=== PATIENT | female | born 1935 | race Caucasian/White ===

== ENCOUNTER 2019-03-01 13:28 | Inpatient (IN) | payer OTHER ==
[~2019-03-01] VITALS: Ht 162.6 cm; Wt 70.8 kg
[2019-03-01 04:11] VITALS: BP 140/55
[~2019-03-01 13:28] MED LIST: ASPIR 8181 MG PO; IBUPROFEN 800800 M1 PO; LIPITOR; LOTENSIN; MEDROL DOSPAK21 TAB PO; UNICOMPLEX M TA1 TA1 PO
[2019-03-01 13:30] VITALS: BP 146/77
[2019-03-01 13:59] LABS: URINE BILIRUBIN NEGATIVE (Negative); URINE BLOOD NEGATIVE (Negative); URINE CLARITY CLEAR; URINE COLOR YELLOW; URINE GLUCOSE-RANDOM* NEGATIVE (Negative); URINE KETONES NEGATIVE (Negative); URINE LEUKOCYTES-REFLEX TRACE (Negative); URINE NITRITE-REFLEX NEGATIVE (Negative); URINE PROTEIN (DIPSTICK) NEGATIVE (Negative); URINE SPECIFIC GRAVITY >= 1.030 (1.005-1.035); URINE UROBILINOGEN 0.2 E.U./dl (0.2-1.0)
[2019-03-01 14:08] LABS: AMP/METHAMP Negative (Negative); BARBITURATES Negative (Negative); BENZODIAZEPINES Negative (Negative); COCAINE Negative (Negative); METHADONE Negative (Negative); OPIATES Negative (Negative); PCP Negative (Negative)
[2019-03-01 15:13] LABS: ABSOLUTE NEUTROPHILS 4.6 thou/uL (1.4-8.2); BASOPHILS 0.8 % (0.0-2.0); EOSINOPHILS 1.2 % (0.0-3.0); HEMATOCRIT 38.6 % (37.0-47.0); HEMOGLOBIN 12.8 gm/dL (12.0-15.0); MCH 30.9 pg (26.0-34.0); MCHC 33.1 g/dL (28.0-37.0); MCV 93.3 fL (80.0-100.0); PLATELET COUNT 265 thou/uL (150-400); RBC 4.14 mil/uL (4.20-5.00); RDW 13.1 % (10.5-14.5); WBC 7.3 thou/uL (4.0-11.0)
[2019-03-01 15:23] LABS: ANION GAP 11 mmol/L (7-16); BUN 22 mg/dL (7-18); CHLORIDE 108 mmol/L (98-107); CO2 25 mmol/L (21-32); CREATININE 0.7 mg/dL (0.6-1.0); GLUCOSE 109 mg/dL (74-106); SODIUM 144 mmol/L (136-145)
[2019-03-01 15:33] LABS: ALBUMIN 4.1 g/dL (3.4-5.0); SALICYLATE 3.6 mg/dL (2.8-20.0); SGOT 19 U/L (15-37); SGPT 23 U/L (30-65); TOTAL BILIRUBIN 0.4 mg/dL (<0.1-1.0); TOTAL PROTEIN 7.1 g/dL (6.4-8.2)
[2019-03-01 16:21] VITALS: BP 132/78
--- NOTE | 2019-03-01 17:30 | NUR ---
Patient arrived from ER as a 96 hour hold. Patient denies any suicidal ideations. Patient states that she does have a short term memory and some dementia. Patient states that she is being held without her permission. Patient is ambulatory, and can take medications whole. Patient is upset because the police came to her home and removed her without her consent. Patient arrived with a purse with a wallet that contained 32 dollars and different types of cards such as a license and bank card. Patient did not bring any other belongings. Patient was transported from the emergency room to [facility] via wheel chair. Patients blood pressure was elevated when her vital signs were taken.
--- NOTE | 2019-03-01 18:46 | NUR ---
Assessment reveals clear breath sounds, active bowel sounds, and s1 s2 audible with auscultation.
[2019-03-01 19:54] VITALS: BP 140/55
[2019-03-01 20:00] VITALS: BP 140/55
--- NOTE | 2019-03-02 05:52 | NUR ---
PATIENT HAS BEEN CALM AND COMPLIANT. SHE HAS BEEN SLEEPING SINCE 1930 AND DID AWAKE AROUND 0400 DRESSED IN HER CLOTHES AND CARRYING HER SHOES. SHE WAS ALERT AND ORIENTED X 3 BUT CONFUSED AND FORGETFUL. SHE SAID SHE WAS NOW GOING TO BE LEAVING AND WANTED TO SAY GOOD BYE. I EXPLAINED THAT NO ONE WAS LEAVING AT THIS HOUR AND SHE NEEDED TO STAY BECAUSE THE DOCTOR WANTED TO SEE HER THIS MORNING. SHE WAS AGREEABLE AND DECIDED TO GO BACK AND LAY DOWN ON HER BED WHICH SHE FINDS VERY COMFORTABLE. PATIENT DENIES PAIN. SHE IS AMBULATING WITHOUT DIFFICULTY. PHYSICAL ASSESSMENT WNL. PATIENT SLEEPING.
[2019-03-02 08:17] VITALS: BP 166/80
[2019-03-02 09:20] LABS: TSH 2.806 uIU/mL (0.358-3.740)
[2019-03-02 11:08] VITALS: BP 166/80
--- NOTE | 2019-03-02 11:28 | NUR ---
ASSUMED CARE AT 0700 THIS MORNING. PT. IN BED, GOT UP FOR BREAKFAST. CONTINUES TO ADMIT SHE DOES HAVE PROBLEMS WITH HER MEMORY BUT DENIES IT IS BAD ENOUGH TO BE HERE. SHE HAS MOSTLY BEEN PACING IN THE SAENZ, OFTEN STANDING BY THE NURSES STATION OR THE 'S OFFICE JUST "WAITING" OR STARING. SHE HAS A TENSE POSTURE. SHE HAS A FLAT AFFECT. SHE HAS BEEN COOPERATIVE WITH TAKING HER MEDICATIONS. IS ISOLATIVE ON THE UNIT, STAYING NEAR HER ROOM, DR'S OFFICE OR NURSES STATION. SHE DOES NOT TALK TO ANYONE UNLESS SHE IS ASKED A QUESTION. SHE WILL ANSWER THE QUESTION AND NOT SAY ANYTHING MORE THAN THAT.
--- NOTE | 2019-03-02 15:23 | NUR ---
ARISTEO contacted pt's brother Tyler to get background information on pt. He says that pt has been diagnosed with dementia, and she possibly sees a doctor with [facility]. He said he gave all of her doctor information to the ED staff. He said that pt has been hoarding a while, but lately she has become even more reclusive. He says pt has a brother (Jett) who also has been diagnosed with dementia who is currently in fpc. He said pt has been 2x's, and 2x's, and has never had a good relationship with her family; she accuses her mother of negative things she allegedly has done to her. Tyler believes her claims are unfounded. 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 To his knowledge, pt does not have any allergies. She also does not have a DPOA; he said he tried many times to encourage pt to take care of this matter but she did not. She only had one son, but he is . ARISTEO talked with Tyler about guardianship, and he said at this time he is unable to handle that task as he is also 80 and that is more responsibility than he can handle. He also does not have the funds to pursue guardianship. Tyler said pt cannot go home because her house has been condemned by the [facility]. ARISTEO scheduled a family meeting with Tyler for 03/06/19 @ 1300. ARISTEO team will continue to follow pt during her stay.
[2019-03-02 20:00] VITALS: BP 146/66
--- NOTE | 2019-03-02 23:53 | NUR ---
Care assumed of patient at 1915: Patient sitting in her room reading the newspaper at start of shift. Patient pleasant and cooperative with nursing assessment. Patient alert and oriented to person and time. Disoriented on current place and situation. When asked if patient knew where she was, she stated that she came here to visit because she wasn't sure if she would like it and wanted to "try it out". Patient re-oriented that she is currently at the hospital. Patient then stated "oh, that is good, in case someone gets sick, there are doctors here". Patient then talked about how her administrative office manager came to visit her today because he saw her name was on the roster and wanted to check in. Unsure if this is accurate. As patient was reading the paper, she noted that she was reading an old paper and would like to get a current paper. Patient came to dining room and interacted well with staff and peers. Patient ate 100% HS snack. Independent with ADLs. Continent of bladder. Patient not fixated on going home this shift. Patient happy and smiling. Patient does not have any scheduled HS medications. Denies pain or discomfort. Remains on involuntary hold at this time. No aggression or agitation observed. Loose associations noted when speaking. Patient was able to retire to bed at a reasonable hour and has been resting quietly since.
--- NOTE | 2019-03-03 07:30 | NUR ---
PT SITTING IN DAY ROOM. PT UPSET ABOUT HOW SHE ENDED UP HERE. PT STATED THAT THE POLICE JUST CAME INTO HOUSE WITHOUT KNOCKING AND GOING THROUGH HER STUFF. PT STATED IF THEY WOULD OF KNOCKED ON DOOR. THIS EYEGLASS FITTER ASKED HER IF SHE HAD A CELL PHONE OR IF SHE WATCHES ANY TV, PT STATED NO SHE DIDN'T HAVE A PHONE. PT STATED SHE WAS GOING THROUGH PAPERS AT HOME. PT STATED SHE WAS NOT HAPPY WITH THIS SITUATION AND JUST WANTS TO GO HOME.
[2019-03-03 08:00] VITALS: BP 138/60
[2019-03-03 08:49] VITALS: BP 138/60
--- NOTE | 2019-03-03 15:06 | NUR ---
ARISTEO and psych doctor met with pt to discuss her discharge plans, and that pt cannot go back to her home because that would be an unsafe discharge due to her living conditions. Also, given pt's issues she is in need of either a DPOA or state guardian. Pt went on a tangent several times about how her brother is attempting to get her home and he is probably the one who called the police; she initially said she believed a neighbor called the police. SW redirected her several times back to who could be her DPOA. Intially she said no one; she does not have a good relationship with either her sister and younger brother, and her older brother is currently a candidate for having a state guardian due to his mental state and dementia. After SW reiterated that the doctor will have no choice but to ask the state to become her guardian, she said that she knows of someone from her hindu named Fransico Peres who she is okay with being her guardian; however, she did not know his contact information. ARISTEO asked pt questions to see if she was oriented including the date and season. Pt got those 2 answers correct, but when she asked pt where they were pt responded "we are going into winter." SW clarified that she was asking what place ther were currently at and pt responded "right it's February, we are going into Winter." SW then asked her who the president was and she responded "the tee getting ready to get kicked out of office." SW responded there have been a few presidents who were threatened to be kicked out so which one is in office now. Pt responded that it's "the tee all over the news." Pt never gave a name. ARISTEO contacted the [facility] in [place], [place], where pt attends hindu and asked for Fransico. She was told by personnel that Fransico no longer workds there., but that she can send him an email. ARISTEO left her contact information. Fransico Peres contacted ARISTEO and ARISTEO provided him an update on pt needing a DPOA. He reponded that while he has known pt many years, he also knowsthat she is unstable and in real need. He said he believes this will be much work, and that he is unsure if he should be involved, but that he is okay with being pt's DPOA. ARISTEO obtained his address and phone number of [address] [place], [facility] . ARISTEO team will continue to follow pt during her stay.
--- NOTE | 2019-03-03 16:09 | NUR ---
ASKED PT ABOUT SHOWERING, PT STATED SHE WANTED TO WAIT TILL HER FRIEND CALLS BACK. ASKED ABOUT WHAT IF FRIEND DOESN'T CALL UNTIL TOMMORROW, SHE STATED SHE WILL BE OKAY.
[2019-03-03 20:15] VITALS: BP 145/60
--- NOTE | 2019-03-04 02:38 | H ---
[facility] [place] [address] HISTORY AND PHYSICAL Name: RAPHAEL ALMARAZ Room #: 518B-B ADM IN M.R.#: [id number] Admission: 03/01/19 Attend Phys: Aaron Mullins DO Discharge: Date of : 39 Report #: [id number] THIS REPORT FOR: //name// CC: Aaron Feliz DATE OF SERVICE: 03/01/2019 INPATIENT PSYCHIATRIC EVALUATION ATTENDING PHYSICIAN: Aaron Mullins DO MEDICAL CONSULTANTS: Uli Ledesma MD, need to see if the patient with Dr. Feliz. SOURCES OF INFORMATION: [place] Police [employer], affidavits, ER records, interview with the patient in the ER and on the Psychiatry Unit. REASON FOR PRESENTATION: Self-care failure. HISTORY OF PRESENT ILLNESS: This is an 83-year-old female who was brought by EMS and [place] booking police officer for self-care failure. The booking police officer reported that family had called for a welfare check on the patient. When they arrived, she was found in unsanitary and inhabitable conditions with living room covered in newspapers, littered with rat feces, kitchen, stack of dirty pans incompatible with cooking foods, bathrooms were covered in debris, unable to be used for showering or toileting. The patient reported that she had been cleaning herself with a washcloth for sometimes and requested the booking police officer to give her time to put makeup on before having EMS pick her up. She became easily angered when talking about how he knew to come check on her. Family is wondering if it was from her brother or [id number]. In the ER, the patient admitted she has dementia, but insists that this was by someone pretending to play doctor, cannot be true. She made some hyper-christian references, easily angered again. She denied pain, shortness of air, chest pain or medical complaints. PAST MEDICAL HISTORY: Includes mitral valve regurgitation; enlarged left atrium; hypertension; hyperlipidemia; skin cancer on nose, stopped radiation on 07/17. PAST SURGICAL HISTORY: Left tonsillectomy, appendectomy, and cholecystectomy in 1977. MEDICATIONS: Reported home meds, atorvastatin, benazepril, aspirin, and multivitamin. [address] [address] HISTORY AND PHYSICAL Name: RAPHAEL ALMARAZ Simon Room #: 518B-B [facility] IN ..#: [id number] Admission: 03/01/19 Attend Phys: Aaron Mullins DO Discharge: Date of : 37 Report #: [id number] ALLERGIES: Allergic to PENICILLIN. SOCIAL HISTORY: Unclear substance abuse history, but doubt using illicit drugs recently. REVIEW OF SYSTEMS: From the ER, CONSTITUTIONAL: Negative for fever or chills. EYES: Negative for eye pain or visual change. HENT: Negative for rhinorrhea or sore throat. RESPIRATORY: Negative for cough or shortness of breath. CARDIOVASCULAR: Negative for chest pain or palpitations. GASTROINTESTINAL: Negative for abdominal pain. No nausea, vomiting or diarrhea. GENITOURINARY: Negative for burning, urgency, frequency or hematuria. MUSCULOSKELETAL: Negative for back pain and muscle pain. SKIN: Negative for any rashes. NEUROLOGICAL: Negative for numbness, tingling or weakness. ENDOCRINE: Negative for diabetes or hypothyroidism. HEMATOLOGIC AND LYMPHATIC: Negative for easy bleeding or bruising. PHYSICAL EXAMINATION: VITAL SIGNS: Pulse ox 97%, BP 146/77, temperature 36.9, pulse 59. The patient weighs 70.31 kilos. Physical exam in the ER is grossly normal. LABORATORY DATA: From the ER, sodium 144, potassium 4.0, chloride 108, bicarbonate 25, anion gap 11, BUN 11, creatinine 0.7, estimated GFR 80, glucose 109, calcium 10. Total bilirubin 0.4, AST 19, ALT 23, alkaline phosphatase 68, total protein 7.1, albumin 4.1. Hematology: White count 7.3, H and H 12.8 and 38.6, platelet count 265. Toxicology negative. Salicylate is 3.6, acetaminophen less than 2. Serum alcohol less than 10. Urinalysis negative. HCG is negative. On the Geriatric Psychiatry Unit, the patient refused to sign in voluntarily and 96-hour hold was filled out which consumed about 45 minutes of time. PHYSICAL EXAMINATION: NEUROLOGIC: Kyphotic. Normal gait and station. Wearing glasses. MENTAL STATUS EXAMINATION: This is a well-developed female appearing stated age. Attention fair to limited. Concentration limited. Speech is normal rate. Thought process is linear and goal directed. Thought content focused on not being able to go home. She was a bit resistant in giving up her belongings like her purse. Mood and affect, irritable, congruent, constricted. Denied SI or HI. Some hopelessness, helplessness. Denied auditory, visual, or tactile hallucinations. Memory not formally tested given her distress and lack of cooperation. Insight limited. Judgment limited. Fund [facility] [address] [place] [address] HISTORY AND PHYSICAL Name: RAPHAEL ALMARAZ Room #: 518B-B ADM IN M.R.#: [id number] Admission: 03/01/19 Attend Phys: Aaron Mullins DO Discharge: Date of : 37 Report #: [id number] of knowledge no greater than average. FORMULATION: An 83-year-old female brought by police EMS for psychiatric evaluation due to self-care failure. 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 PLAN: Evaluate, stabilize, obtain collateral, obtain OT eval including a Kohan evaluation of living skills. If the patient will cooperate, we would like to get a neuropsychological test. Need to find out from family if she has had dementia workup elsewhere. If not, certainly neuro imaging with a head CT, B12, folate, syphilis antibody, vitamin D will be ordered if that has not been checked out. ESTIMATED LENGTH OF STAY: 10-14 days. Currently, involuntary. Full code. STRENGTHS: She is insured, has some family support. WEAKNESSES: Advancing age. WORKING DIAGNOSIS: Major neurocognitive disorder. At least 60 minutes spent on this case including evaluation and coordination of care and discussion with authorities who brought her in. <ELECTRONICALLY SIGNED> By: Aaron Mullins DO 03/04/19 0238 13 2156 Aaron Mullins DO /nt
--- NOTE | 2019-03-04 03:03 | NUR ---
ASSUMED CARE FROM DAY SHIFT PT UP IN HALLWAY WALKING AROUND GAIT STEADY, CALM AND COOPERATIVE. PT VERY FRIENDLY WITH OTHER PATIENTS. ANSWERING QUESTIONS EASLIY. HS SNACK EATEN AND PT WENT TO SLEEP. UP TO BATHROOM X2, RESTING WELL THROUGHOUT FREQ ROUNDING. WILL CONINTUE WITH CURRENT PLAN OF CARE. WILL REPORT CHANGES OR ABNORMAL FINDINGS.
[2019-03-04 07:55] VITALS: BP 145/67
--- NOTE | 2019-03-04 10:47 | EKG ---
[address] [address] ELECTROCARDIOGRAM REPORT Name: RUFINARAPHAEL Room #: 518B-B ADM IN M.R.#: [id number] Admission: 03/01/19 Attend Phys: Aaron Mullins DO Discharge: Date of : 37 Report #: [id number] THIS REPORT FOR: //name// [facility] Test Date: 2019-03-03 Test Time: 13:14:39 Pat Name: RAPHAEL ALMARAZ Department: Room: [facility] Gender: F Student Services Representative: Billy LANDRUM : 1935 Requested By: Aaron Mullins Order Number: [id number] MD: Donnie Shen Measurements Intervals [place] Rate: 73 P: 37 OR: 182 QRS: 29 QRSD: 89 T: 46 QT: 420 QTc: 463 Interpretive Statements Sinus rhythm Compared to ECG 03/31/2014 11:37:34 Sinus bradycardia no longer present Electronically Signed On 03-04-2019 10:46:54 STONE SPLITTER by Donnie Shne [email or web address] <ELECTRONICALLY SIGNED> By: Donnie Shen MD 03/04/19 1046 1314 Donnie Shen MD /BILLY
--- NOTE | 2019-03-04 11:52 | NUR ---
MINIMAL INTERACTION WITH PEER GROUP NOTED SO FAR THIS SHIFT-IS VISIBLE IN DAYROOM BUT SITS AWAY FROM PEERS AND STRUCTURES FREE TIME PACING IN HALLWAY OR SITTING QUIETLY IN ROOM. ANXIOUS FACIAL EXPRESSION AND WHEN APPROACHED FOR INITAL INTRODUCTION/ASSESSMENT STATES "I DON'T WANT TO BE HERE-I DON'T NEED TO BE HERE" "I AM NOT SICK LIKE THESE PEOPLE ARE" APPEARS SUSPICIOUS/HYPERVIGILANT IN ENVIRONMENT-AT ONE POINT APPROACHED THIS NURSE AND INSISTED WE GO TO HER ROOM TO TALK PRIVATLY-STATES SHE BELIEVES BELONGINGS ARE BEING TAKEN FROM HER ROOM INCLUDING A PEN AND AN EYELINER-INSISITS THAT THIS NURSE "NOT BRING IT UP" WITH ANYBODY ELSE AND TALKS IN LOW VOICE INDICATING SHE DOESN'T WANT ANYONE ELSE TO OVERHEAR. SUSPICIOUS OF BROTHERS MOTIVATES FOR PURSUING EVALUATION INSISTING THAT THIS WAS NOT DONE BECAUSE OF CARE AND CONCERN FOR HER SAFTEY STATES "HE JUST WANT THE MONEY"
[2019-03-04 21:15] VITALS: BP 116/68
--- NOTE | 2019-03-05 03:05 | NUR ---
ASSUMED CARE FROM GUNNAR SHIFT PT IN ROOM, CALM COOPERATIVE AND VERY TALKATIVE, PT STATES SHE READY TO DO HER TIME AND RETURN HOME PT DENIES THAT HER LIVING CONDITIONS IS 'JUST FINE' AND SHE HAVE WORKING BATHROOM. PT STATES THAT HER YOUNGR BROTHER IS AFTER HER MONEY. PT THEN HAD HS SNACK AND WENT TO SLEEP. PT RESTED WELL THROUGHOUT FREQ CHECKS. WILL CONITUE WITH CURRENT PLAN OF CARE , WILL REPORT CHANGES OR ANORMAL FINDINGS.
[2019-03-05 09:33] VITALS: BP 180/50
[2019-03-05 09:52] VITALS: BP 180/50
--- NOTE | 2019-03-05 14:59 | NUR ---
Assumed this am. Pt calm and cooperative. She really wants to know who brought her in here because she things her brother wants to take carlie house and car. Up and nathalie. Walks around the unit listening to what people are saying. She wants to go back to her house. Patient redirected and educated about medical treatment. Will continue to monitor.
[2019-03-05 20:00] VITALS: BP 144/63
--- NOTE | 2019-03-06 02:48 | NUR ---
ASSUMED CARE FROM DAY SHIFT PT IN ROOM READING , CALM COOPERATIVE AND ORIENTED X4 , TALKED ABOUT HOME BEING FIXED, PT APPEARS TO BE ACCEPTANCE OF THE SITUATION. RESTED WELL THROUGHOUT FREQ ROUNDING, WILL CONINTUE WITH CURRENT PLAN OF CARE AND REPORT CHANGES.PT STATES SHE IS JUST WAITING UNITL THE TIME SHE MAY BE RELEASED
[2019-03-06 08:31] VITALS: BP 118/91
--- NOTE | 2019-03-06 13:38 | NUR ---
WITHDRAWN TO ROOM INITALY THIS SHIFT-DID COME OUT FOR BREAKFAST WITH ENCOURAGEMENT BUT REFUSES GROUP AND STRUCTURES FREE TIME INROOM MAKING NOTES-DURING 1;1 IN AM CONTINUES TO STATE SHE DOES NOT NEED TO BE HERE-DOESN'T LIKE TO BE AROUND THE OTHER PATIENTS BECAUSE "THEY ARE REALLY BAD OFF AND I AM NOT MY BROTHER IS OUT TO GET ME"INCREASED AGITATION AFTER FAMILY MEETING AT AT [address]OX 1330 NOTED TO BE PACING RAPIDLLY IN HALLWAYS-ANGRY FACIAL EXPRESSION-APPROACHING ALL STAFF/MDS AND TALKING RAPIDLY ASND LOUDLY ABOUT HOW HER FAMILY IS TRYING TO "GET EVERYTHING I OWN" SPENT APPROX 25 MINUTES ATTEMPTING TO OFFER SUPPORT,REASSURANCE -
--- NOTE | 2019-03-06 15:16 | NUR ---
SW received a call from Fransico Peres stating that after thinking over the responsibility of a DPOA, he would rather not have that role. He said he has known pt many years and that she is very manipulative. He believes her siblings should have this responsibility. Before the family meeting, SW invited pt to attend and she came into the group room and immediately began verbally attacking both her brother and sister. SW was able to calm pt down enough to talk to her out in the harry. It is her belief that her siblings are trying to take her home from her and her money. SW attended the meeting with both pt's brother Avery and sister, and Don's . They gave several accounts of when pt recently has made impulsive decisions including taking an additional loan on her home. The psych doctor explained to pt's family that pt is in need of a guardian. Her family agreed but said they cannot take on the responsibility as they are too hold to handle the issues that come with pt. They agreed the state should take guardianship. The psych doctor explained the process of state guardianship. Pt's family is familiar with the process as they just went through this with pt's oldest brother Richard. Varela is concerned about pt's utilities in her home. The psych doctor contacted the police department and spoke to Officer Favian who said he may be able to help with keeping utilities on until a decision has been make for pt's placement. On the way out, pt saw her family talking with the psych doctor and began lashing out at them again verbally accusing her sister of wanting her house. The psych doctor talked with pt, and ARISTEO spoke with her family in the hallway and provided supportive listening. SW team will continue to follow pt during his stay.
[2019-03-06 19:42] VITALS: BP 143/61
--- NOTE | 2019-03-07 04:29 | NUR ---
TOOK OVER CARE OF THIS PATIENT AT 1930. PATIENT ALERT AND ORIENTED X4. UP AD KYE. NO PROBLEMS TAKING MEDS. REMAINED CALM ALL NIGHT. SLEPT MOST OF NIGHT. DENIES PAIN.
--- NOTE | 2019-03-07 12:59 | NUR ---
Sw set up a family meeting with son Diogo Phelan [phone] per family request.
--- NOTE | 2019-03-07 13:54 | NUR ---
ARISTEO received a questionnaire from research attorney Makeda Garzon on behalf of pt to be filled out by ARISTEO. ARISTEO completed the form and contacted Avery Vazquez (pt's brother) to obtain the information such as his and his sister Davon's contact information, and pt's assets. ARISTEO emailed the document back to Makeda Garzon. SW team will continue to follow pt during her stay.
[2019-03-07 17:48] VITALS: BP 142/52
--- NOTE | 2019-03-07 17:54 | NUR ---
THE PATIENT HAS BEEN QUIET AND CALM BUT SHE SAID THROUGH OUT THE DAY THAT SHE IS VERY UPSET AND ANGRY BECAUSE HER BROTHER IS TRYING TO GET HER HOUSE AND TAKE HER THINGS. THE PATIENT STATE THAT HER SISTER IS GOING TO GET A BAY STOCKER TO STOP HIM. THE PATIENT IS CONFUSED. SHE HAS BEEN COMPLIANT WITH MEDICATIONS AND COOPERATIVE WITH STAFF AND HEALTH CARE. SHE AMBLATES WITH A STEDY GAIT AND HAS BRP. SHE IS ALERT AND ORIENTED TO PLACE, PERSON AND TIME. CONTINUE TO MONITOR THE PATIENT.
[2019-03-07 18:04] VITALS: BP 138/55; BP 142/52
[2019-03-07 19:29] VITALS: BP 140/64
--- NOTE | 2019-03-08 01:04 | NUR ---
ASSESSMENT: PT REMAIN ALERT AND ORIENT TIMES THREE, FORGET TO SITUATION. PT WAS VERY UPSET ON AN ASSESSMENT FROM THE DOCTOR'S COPY. PT CONTINUED TALKING THE ENTIRE TIME ABOUT HER BROTHER WAS TRYING TO TAKE HER HOUSE AND THAT SHE ALWAYS FAST AND PRAY. PT WAS IN HYSTERICAL ABOUT ALMOST EVERYTHING. FINALLY THIS PT WROTE ON A PIECE OF PAPPER, "IF YOU ARE GOING TO WORRY DON'T PRAY, BUT IF YOU ARE GOING TO PRAY, DON'T WORRY". PT SEEMED TO LIKE THAT PHRASE VERY WELL AND SOON WENT TO SLEEP. NO SIGNS OF DELUSIONS, HALLUCINATION PRESENT. PT DID DISPLAY SIGNS/SYMPTOMS OF BEING PARANOID. VSS, AFEBRILE. UP WITH STEADY GAIT AROUND THE ROOM. 96 HOUR HOLD WAS OVER ON 03/07/19. POSSIBLE DC TO A MEMORY FACILITY. TOLERTING PO INTAKE. POOR PROGRESS, WILL CONTINUE TO MONITOR.
[2019-03-08 09:07] VITALS: BP 147/72
--- NOTE | 2019-03-08 09:12 | NUR ---
0642 Report received from overnight shift, patient this morning was in day room alert and talking with patients. Patient ate breakfast and took medications without incidence. Patient cooperative, calm more engaged then previous day. Patient participated in groups, will continue to monitor patient for safety.
[2019-03-08 19:39] VITALS: BP 136/65
[2019-03-09 01:22] VITALS: BP 136/65
--- NOTE | 2019-03-09 03:43 | NUR ---
PT IN AND OUT OF ROOM. PARANOID ABOUT BEING HERE. CLAIMS THAT HER YOUNGER BROTHER IS TRYING TO STEAL HER HOUSE. HE "LIED ABOUT ME". REFUSED HS MED. I DON'T NEED IT. REMAINED ISOLATED IN ROOM FOR REMAINDER OF EVENING. CURRENTLY SLEEPING.
[2019-03-09 08:06] VITALS: BP 119/47
--- NOTE | 2019-03-09 11:32 | NUR ---
Nutrition: Assessed for early weekend LOS on [facility] unit. Admit: dementia, agitation. On a regular diet and eating extremely well. Averaging 76% of meals from 03/03 - 03/09. States she enjoys the food and has no complaints. Discussed importance of food group balance, having fruits, vegetables, and ensuring a protein source with every meal. Pt likes milk and water with meals. Agrees to addition of cottage cheese at lunch for added protein source. Wishes for chocolate. Plan to add chocolate ice cream to nightly dinner. Pt at a healthy weight, BMI 24.6 kg/m2. No active nutrition problems; low nutrition risk.
--- NOTE | 2019-03-09 13:07 | NUR ---
Belkys with [employer] contacted ARISTEO because she was not receiving the questionnaire ARISTEO filled out via email. She gave the fax number of [phone]. ARISTEO also provided an update to Belkys that pt is the sister of Rud[place] Vaz[place], which [place] [facility] is seeking guardianship of. ARISTEO faxed the documents requested to Belkys. ARISTEO team will continue to follow pt during her stay.
[2019-03-09 13:38] VITALS: BP 119/47
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
[2019-03-09 19:59] VITALS: BP 171/67
--- NOTE | 2019-03-10 03:25 | NUR ---
ASSUMED CARE FROM DAY SHIFT PT UP AMBULATING HALLWAY , DISCUSSED PLAN OF CARE AND VERBALIZED UNDERSTANDINGS. PO MEDICATION AND HS SNACK EATEN. CALM COOPERATIVE VOICED NO CONCERNS WHEN TALKED WITH PATIENT. PT IS JUST ASKING WHEN IS DOCTOR GOING TO RELEASE HER. PT RESTED UNITL 0330, PT AWOKE STATING SHE IS TO BE RELEASED THIS MORNING AND NEED TO PACK. EXPLAINED TO PT THAT SO FAR I HAVE NO ORDER AND WILL ADDRESS THIS WIHT THE DOCTOR. PT AGREED AND WENT BACK TO ROOM, GOING THROUGH HER BELONGINGS THAT SHE HAVE IN ROOM. PT REMAINS CALM AND COOPREATIVE.
[2019-03-10 11:35] VITALS: BP 175/55
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
[2019-03-10 19:21] VITALS: BP 142/65
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
[2019-03-11 09:18] VITALS: BP 109/55
[2019-03-11 09:29] VITALS: BP 109/55
--- NOTE | 2019-03-11 14:28 | NUR ---
Pt agitated this am. Refused meds but then took them with prompting. Meds crushed in applesauce. Refused assessment with physician this afternoon. Needed assistance with meals to day but ate well. Socialized with peers on the unit. No behaviors noted this shift. Will continue to monitor per protocol.
--- NOTE | 2019-03-11 14:34 | NUR ---
Pt calm et cooperative this shift. Took meds without difficulty. Was given B12 injection this shift per physician order for low level. Pt tolerated injection with no signs or symptoms of adverse reaction. Occasionally social with peers on the unit. No behaviors noted. Will continue to monitor per protocol.
[2019-03-11 15:42] LABS: HEMATOCRIT 36.6 % (37.0-47.0); HEMOGLOBIN 11.9 gm/dL (12.0-15.0); MCH 30.5 pg (26.0-34.0); MCHC 32.5 g/dL (28.0-37.0); MCV 93.7 fL (80.0-100.0); RBC 3.91 mil/uL (4.20-5.00); RDW 13.5 % (10.5-14.5); WBC 6.6 thou/uL (4.0-11.0)
[2019-03-11 15:53] LABS: CALCIUM 9.5 mg/dL (8.5-10.1); CREATININE 0.8 mg/dL (0.6-1.0); MAGNESIUM 1.8 mg/dL (1.8-2.4); POTASSIUM 4.2 mmol/L (3.5-5.1)
[2019-03-11 19:08] VITALS: BP 137/56
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
[2019-03-12 05:21] LABS: HEMATOCRIT 33.7 % (37.0-47.0); HEMOGLOBIN 11.1 gm/dL (12.0-15.0); MCH 30.7 pg (26.0-34.0); MCV 93.1 fL (80.0-100.0); RBC 3.62 mil/uL (4.20-5.00); WBC 5.5 thou/uL (4.0-11.0)
[2019-03-12 05:29] LABS: CALCIUM 9.3 mg/dL (8.5-10.1); CREATININE 0.6 mg/dL (0.6-1.0); MAGNESIUM 1.9 mg/dL (1.8-2.4)
[2019-03-12 09:03] VITALS: BP 121/57
--- NOTE | 2019-03-12 09:16 | NUR ---
ASSUMED CARE AT 0700 THIS MORNING. PT. UP, DRESSED AND ON THE UNIT FOR BREAKFAST. SHE ATE BREAKFAST ON THE UNIT, WAS COOPERATIVE WITH TAKING HER MEDICATIONS. SHE SAT BY HERSELF ON THE SIDE OF THE DINING ROOM, NOT REALLY TALKING TO ANYONE. AFTER EATING, SHE RETIRED TO HER ROOM, SITTING IN A CHAIR, ISOLATING HERSELF FROM EVERYONE. WILL SPEAK UPON APPROACH ONLY.
[2019-03-12 10:12] VITALS: BP 121/57
[2019-03-12 19:15] VITALS: BP 144/57
--- NOTE | 2019-03-12 23:23 | NUR ---
RECEIVED REPORT FROM OFFGOING DAY SHIFT, ASSUMED CARE @ 19:15 ON 03/12/19. IN ROOM, LYING IN BED. AWAKENS TO VOICE, A&O X 3. PARANOID THINKING REGARDING FAMILY PLACING HER IN HOSPITAL. REPORTS THAT SHE BELIEVES THAT FAMILY IS TRYING TO TAKE OVER HER HOME AND HER MONEY. SUSPICIOUS ABOUT SON, AND BROTHER HAVING SELFISH INTENTIONS REGARDING HELPING HER MANAGE HER BILLS AND MONEY. COOPERATED WITH ASSESSMENT. COOPERATED WITH TAKING HS MEDS, PUTTING MEDS DEEP IN HER THROAT AND SWOLLOWING WITH THIN WATER. NEATLY DRESSED. WITH AN EXTENDED CONVERSATION AND ENCOURAGEMENT, AGREED TO CHANGE INTO HOSPITAL GOWN AND PANTS AND ALLOW DAY CLOTHES TO BE WASHED. SAYING THAT SHE DID NOT HAVE A TOOTHBRUSH, THIS NURSE SHOWED HER THE TOOTHBRUSH IN HER BATHROOM. SHE THAN SHOWED A TOOTHBRUSH THAT SHE HAD "HIDDEN" IN HER NIGHT STAND. WHEN SUGGESTION MADE THAT TOOTHBRUSH AND TOOTHPASTE ARE BEST KEPT IN THE BATHROOM AT THE SINK, SHE RESPONDED THAT SOMEONE ELSE MIGHT STEAL OR USE THEM.
--- NOTE | 2019-03-13 06:32 | NUR ---
slept 7.8 hours overnight.
[2019-03-13 07:40] VITALS: BP 117/55
[2019-03-13 07:53] VITALS: BP 117/55
--- NOTE | 2019-03-13 10:03 | NUR ---
ASSUMED CARE OF PATIENT AT 0715AM ON 03/13/19. PATIENT IN ROOM CLEANING AREA AND GETTING DRESSED. PATIENTS GOAL IS TO GO HOME AND STATES" I DO NOT UNDERSTAND WHY MY YOUNGER BROTHER WOULD SEND ME HERE, HE JUST WANTS MY HOUSE". SHE ALSO STATED "I WAS FINE ALL ALONE". PATIENT DENIES SI/HI AND AVH. PATIENT IS COOPERATIVE AND CALM, SMILES AT APPROPRIATE TIMES. AT 0800 PATIENT IN DAY ROOM SITTING AT TABLE WITH OTHER PATIENTS INTERACTING WELL.
[2019-03-13 19:52] VITALS: BP 111/58
--- NOTE | 2019-03-14 00:16 | NUR ---
Care assumed of patient at 1915: Patient restless this evening. Standing at the nurses station requesting her sisters phone number at start of shift. Patient stated that she needed to call her sister so she can come pick her up. Patient re-orientated that she is at the hospital and the doctor is not ready to discharge her quite yet. Patient then became frustrated with her brother and cursing, stating that he needs to stop snooping in her business and he just wants to steal her house. States that she would not be here if her brother minded his own business or discussed her home as a small family discussion. Patient appeared to calm down after she was able to verbalize frustrations. Patient was restless and pacing from her room to dayroom several times. Patient did not isolate as much as prior this shift. Appeared to sit in dayroom and interact with other peers more this evening. Took HS medication without difficulty. Denies pain or discomfort. Denies SI/HI/AH/VH. Alert and oriented x2 during assessment. Confusion and forgetful behaviors observed. Nurse was cleaning rooms and noted that patient had multiple containers, blank papers, cups, folded Kleenex and papertowels tucked in cupboards around her room. Room was picked up. Hoarding behaviors noted. Patient ate 100% HS snack with other peers. Patient was able to retire to bed at a reasonable hour and appears to be resting well at this time.
[2019-03-14 08:59] VITALS: BP 119/56; BP 130/56
--- NOTE | 2019-03-14 16:12 | NUR ---
Up ambulating t/o unit without diff. Alert and orientated to self. Knows she is in the hospital but doesn't know name of it. Denies SI/HI, pain. Upset this afternoon with her younger brother. Verbalizing anger and frustration and blaming him for admission. Suspicious of his motives for reporting. Also verbalizing anger with MD for consultative report. States she wants to go home. No acting out behavior. Breath sounds clear t/o, bilaterally equal. Reg HR auscultated. Color pink with brisk capillary refill and palpable peripheral pulses. Active bowel sounds over soft, rounded abdomen. Independent with voiding. States arms sore from Vitamen B12 shots. Spoke with Dr. Feliz, changed to PO per order. Compliant with meds and cares. No s/o distress.
[2019-03-14 19:47] VITALS: BP 120/60
--- NOTE | 2019-03-14 23:07 | NUR ---
Care assumed of patient at 1915: Patient pilfering in her room at start of shift. Patient observed moving papers, folding paper towels/ Kleenex/ papers/ linens. Patient showed nurse a word search that she had started using a green marker prior to this shift. Patient started demanding another green marker so she could finish her word search. Educated patient that she would need to go to dayroom and she would be provided with a green marker. Patient became frustrated that she could not have any writing utensils "at this place". Patient did go to dayroom to work on her puzzle. Patient then started yelling at this nurse "ice cream lady, I need ice cream now!". Patient educated that snack time would be in 20 minutes and she could have ice cream if she desired. Patient confused and forgetful. Patient alert to name only. Patient is not able to state the current date, location or situation. Patient is aware that she is in a "medical place". Patient did show frustration that she has been taking more pills while here than she has taken in her "entire life". Patient took HS medication whole without difficulty. Patient ate 100% HS snack of ice cream. Denies SI/HI/AH/VH. No paranoia or delusional behaviors observed. Patient is stating that she needs to go home and the doctor stated she might be discharged tomorrow. Patient was able to lay in bed and fell asleep quite quickly for approximately 20 minutes. Rounds completed and observed patient up again straightening her blankets, folding and "organizing" things about her room. Patient assisted to the bathroom, given fresh cup of ice water and then instructed that it was late and she needed to go to bed and sleep. Patient argumentative and frustrated with nurse but did comply. Bed alarm activated to be aware of whereabouts of patient. Patient appears to be sleeping quietly at the moment.
[2019-03-15 07:58] VITALS: BP 132/63
[2019-03-15 11:33] VITALS: BP 132/63
--- NOTE | 2019-03-15 14:49 | NUR ---
ARISTEO received and email from Daniela Perry with [employer]. stating a petition has been created for guardianship on pt and they are awaiting the letter from the psych doctor. ARISTEO received the document the psych doctor faxed to [employer] office. SW team will continue to follow pt during her stay on the hospital.
--- NOTE | 2019-03-15 15:33 | NUR ---
In treatment team it was discussed that pt may benefit from a visit from her closest friend. If pt gives permission to do so, SW should get in contact with friend and invite her for a visit. ARISTEO spoke with pt who gave SW her friends name and number; Zo Cole [phone]. She said it was okay to invite her friend to visit her. Pt smiled at SW and laughed after SW told her she would call her friend. Pt also talked about going home, but was not aggressive in her conversation. She softly said that she thinks her brother thinks she should get rid of her house, and that she wanted to go home to sort some things out. She asked SW could she go home to do so. SW explained that it is the state's decision on if and when she can. SW contacted Zo Cole. No answer. ARISTEO asked for a return call to either her or the other SW phone. SW team will continut to follow pt during her stay.
--- NOTE | 2019-03-15 16:58 | NUR ---
PT CALM ET COOPERATIVE THIS SHIFT. PT TOOK MEDS WITHOUT DIFFICULTY. NO BEHAVIORS NOTED. PT OCCASIONALLY SOCIALIZED WITH PEERS ON THE UNIT. PT ATE MEALS WITHOUT DIFFICULTY ET PARTICIPATED IN GROUPS. WILL CONTINUE TO MONITOR PER PROTOCOL.
[2019-03-15 19:33] VITALS: BP 122/62
--- NOTE | 2019-03-15 22:39 | NUR ---
ASSUMED CARE ON 03/15/19 @ 19:15, IN THE DAY ROOM SITTING AT A TABLE WITH 2 OTHER FEMALE PEERS. SOCIALIZING AND WITHOUT DISRUPTIVE BEHAVIOR. COOPERATED WITH PHYSICAL ASSESSMENT. IN REGARDS TO MENTAL HEALTH ASSESSMENT, GAVE TESTIMONY THAT INCLUDED A BIBLE VERSE AND ADDRESSED WORRY. SAYS HER OWN WORRY IS ABOUT THE WEATHER AND IT BEING DARK OUTSIDE. ALSO WORRIED ABOUT GETTING HOME. RECOUNTED MEDICAL HISTORY WITH TAKING PHEN/PHEN AND HAVING HEART VALVE DAMAGE, THEN PRAYING AND FASTING AND HAVING HER HEART VALVES HEALED. TOOK MEDS WHOLE WITH WATER, RETIRED TO BED AND IS IN A LOW BED WITH THE ALARM SET. WILL CONTINUE TO MONITOR Q 12 MINUTES FOR PATIENT SAFETY.
[2019-03-16 01:51] VITALS: BP 122/62
--- NOTE | 2019-03-16 05:55 | NUR ---
slept 7.8 hours overnight.
[2019-03-16 09:32] VITALS: BP 144/65
--- NOTE | 2019-03-16 14:03 | NUR ---
AT 0715 ASSUMED CARE OF PATIENT ON 03/16/19. AT 0730 PATIENT IN BATHROOM GETTING READY TO COME TO DAYROOM. PATIENT SITS ON SIDE OF BED AND ASSESSMENT DONE AT THIS TIME. WHEN ASKED ABOUT SI/HI PATIENT STATES "I WOULD NEVER DO THAT". ALSO DENIES AVH. PATIENT TALKS ABOUT HOW HER FAMILY WANTS TO TAKE HER HOUSE FROM HER AND HOW THEY DO NOT CARE ABOUT HER.PATIENT TO DAYROOM AND SITS WITH OTHER PATIENTS FOR BREAKFAST. WHEN ASKED ABOUT PAIN PATIENT STATED "IT IS TO EARLY TO BE THINKING ABOUT THAT".
--- NOTE | 2019-03-16 15:28 | NUR ---
SW received a call from flavia Cole who asked SW team to call her back at [phone]. SW contacted her. No answer. SW left message with both numbers of SW team. SW team will continue to follow pt during her stay on the unit.
--- NOTE | 2019-03-16 19:10 | NUR ---
Conversing with peers without s/o distress. Ate dinner and is now in room.
--- NOTE | 2019-03-16 19:58 | NUR ---
ASSUMED CARE ON 03/16/19 @ 19:15, AMBULATING IN THE HALLS, CARRYING A DRINK, WITH A PEER. COOPERATED WITH ASSESSMENT. HEART RRR, LUNGS CTA ALL AGUIRRE, ABD SOUNDS N X 4 Q. DENIES DEPRESSION AND ANXIETY. DENIES HI AND SI. REPORTS PAIN IN THE R SHOULDER OF 3/10.
[2019-03-16 20:14] VITALS: BP 143/72
[2019-03-17 01:13] VITALS: BP 143/72
[2019-03-17 01:19] VITALS: BP 143/72
--- NOTE | 2019-03-17 06:49 | NUR ---
SLEPT 5.8 HOURS
[2019-03-17 07:33] VITALS: BP 132/86
[2019-03-17 13:33] VITALS: BP 132/86
--- NOTE | 2019-03-17 13:36 | NUR ---
Followup: eating 100% meals and wts stable in 150s. on B12 supplementation. Remains low nutrition risk
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
--- NOTE | 2019-03-17 15:24 | NUR ---
ARISTEO contacted Zo Douglas at [phone]. She said she is still in [place] with her daughter, but will come a visit pt next week. She asked that I tell her that. ARISTEO provided an update to pt. Pt smiled and talked about her friendship with Zo. ARISTEO signed pt's petition and faxed it back to Belkys with the [employer]. ARISTEO team will continue to follow pt during her stay on the unit.
[2019-03-17 20:11] VITALS: BP 157/64
--- NOTE | 2019-03-18 04:39 | NUR ---
ASSUMED CARE OF PT AT 1900HRS. PT WAS UP AD KYE WITH A STEADY GAIT. PT WAS PLEASANT AND HAPPY WHEN INTERACTING WITH STAFF OR PEERS. PT STATES THAT SHE FEELS MORE COMFORTABLE IN HER NEW ROOM. NO NOTEABLE EVENT DURING THE SHIFT. TPT WAS ABLE TO GET COMFORTABLE AND SLEEP PART OF THE SHIFT. VSS, WILL CONTINUE TO MONITOR.
[2019-03-18 07:50] VITALS: BP 126/52
--- NOTE | 2019-03-18 09:32 | NUR ---
Pt requested to speak wit ARISTEO concerning discharge. SW met with Pt in Pt's room. Pt seemed aggitated when SW walked in the room. Pt asked when can she go home. SW explained to Pt about pending petition for guardianship. SW explained the process to Pt. Pt became more aggitaed accusing her brother of plotting against her and that everyone is lying to her. Pt continued to state that her brother and sister are against her and that she wants to go home. SW provided emotional support and tried to assist Pt in calming. Pt only became more aggitated. SW ended the conversation with the PT. ARISTEO informed Nurse Petersen of Pt's increased aggitated stated and to watch Pt for further aggitation.
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
[2019-03-18 20:00] VITALS: BP 126/55
--- NOTE | 2019-03-19 05:11 | NUR ---
1909-Report received from day shift nurse and care assumed. She showed paranoia of the unit/hallways wanted to isolate in her room, and shut her door. She blockaded her door with a chair inside one time. In the night she slept some time in her bed, then sat in that chair which was near the doorway, sleeping somewhat. At 2200 she was increasing with her anxiety/paranoia with tense affect and was given Seroquel 50 mg. po. She had no c.o. in the night as she slept or sat in the chair.
[2019-03-19 07:45] VITALS: BP 128/45
[2019-03-19 10:52] VITALS: BP 128/45
--- NOTE | 2019-03-19 16:12 | NUR ---
Pt pleasant et cooperative this shift. Pt ambulates the halls ad nathalie et gait is steady. Pt participates in groups, ate all meals, et took medications whole without difficulty. Pt socializes with peers et staff. No behviors noted this shift. Will continue to monitor per protocol.
[2019-03-19 19:52] VITALS: BP 142/70
--- NOTE | 2019-03-20 05:41 | NUR ---
1909-Report received from day shift nurse. Neeta was compliant with VS and HS medicines. She was notably indescive with what she was to do next, isolative in her room, flat affect, and slept sound tonite.
[2019-03-20 08:02] VITALS: BP 158/72
--- NOTE | 2019-03-20 09:55 | NUR ---
ASSUMED CARE OF PATIENT AT 0720 ON 03/20/19. PATIENT SITTING ON BED PUTTING SHOES ON, GETTING READY FOR BREAKFAST. COMPLAINTS OF CHRONIC PAIN TO THE RIGHT SHOULDER. 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 DENIES NEED FOR PAIN MED AND UNABLE TO RATE PAIN. DENIES SI/HI AND AVH. GOAL: PER PATIENT- TO EARLY TO THINK ABOUT PATIENT TO DAYROOM FOR BREAKFAST. SITS WITH OTHERS AND COMMUNICATES WELL.
[2019-03-20 10:40] VITALS: BP 106/57
--- NOTE | 2019-03-20 14:46 | NUR ---
ARISTEO received a vm from Zo Cole stating that she will be at the hospital to visit pt on Wed. She wanted to know if she could bring the pt Pepsi, candy, and books. ARISTEO responded that the books were fine, but no outside food or drinks were allowed on the unit. Zo was grateful and reiterated that unless she becomes ill, she will be present Wed morning to visit pt. She asked that SW tell pt. SW provided update to pt. SW team will continue to follow pt during her stay on the unit.
[2019-03-20 20:25] VITALS: BP 110/47
--- NOTE | 2019-03-21 02:59 | NUR ---
Assumed pt care @1915. pt wanted to find her sister and brother in law's number, so he she can call them to come pick her up. pt forgetful and pleasantly confused with a lot of redirection needed. pt is sleeping well with little interruptions. no s/s of distress noted. will cont to monitor
--- NOTE | 2019-03-21 11:42 | NUR ---
0649 REPORT RECEIVED FROM OVERNIGHT SHIFT, PATIENT ALERT, CALM COOPERATIVE. PATIENT ATE BREAKFAST AND TOOK MEDICATION WITHOUT INCIDENCE. PATIENT'S EDEMA IN LEGS IS DOWN SIGNIFICANTLY. PATIENT IS AMBULATORY AND WALKING MORE STEADY, WE WILL CONTINUE TO MONITOR PATIENT FOR SAFETY AND FALLS RISK.
[2019-03-21 16:49] VITALS: BP 143/92
[2019-03-21 19:30] VITALS: BP 157/59
--- NOTE | 2019-03-22 02:07 | NUR ---
ASSUMED CARE OF PATIENT AT APPROXIMATELY 1915 ON 03/21/19. PATIENT IS ALERT AND ORIENTED X3, SHE IS CALM AND COOPERATIVE, APPEARS WITH A NERVOUS AFFECT, DISPLAYING PARANOID BEHAVIORS OF OTHER PATIENTS ENTERING HER ROOM. SHE DOES HAVE TWO CHAIRS BLOCKING THE DOOR STATING 'ITLL WAKE ME UP SO IF SOMEONE TRIES TO COME IN.' SHE DENIES SI HI SH AND HALLUCINATIONS. WILL CONTINUE TO MONITOR MOOD AND BX. SHE DENIES MEDICAL CONCERNS WITH NO S/S OF DISTRESS. NURSING WILL MAINTAIN ALL PRECAUTIONS TO ENSURE SAFETY AT ALL TIMES.
[2019-03-22 08:00] VITALS: BP 105/52
--- NOTE | 2019-03-22 08:00 | NUR ---
PT STATED SHE WANTED TO GO HOME TODAY. PT ALSO WAITING FOR HER FRIEND JUDIE. PT STATED SHE IS GOING TO VISIT TODAY AND BE HER ROOMMATE. PT UP AD KYE. PT LIKES TO SAVE PAPERS OR MENU TICKETS.
[2019-03-22 09:11] VITALS: BP 105/52
--- NOTE | 2019-03-22 18:10 | NUR ---
PT NOT SOCIAL TODAY. PT COMES OUT TO EAT AND THEN BACK TO HER ROOM OR WALKING THE SAENZ. PT WANTING TO BE ABLE TO GO HOME SOON. PT STATED THAT HER FRIEND CAN TAKE HER BACK HOME. PT COMPLIANT WITH MEDS AND ALSO WITH CARE.
[2019-03-22 20:34] VITALS: BP 134/63
--- NOTE | 2019-03-23 00:54 | NUR ---
Care assumed of patient at 1915: Patient seated in her room reading at start of shift. Patient withdrawn and isolated self to her room this shift. Patient observed writing and reading. Patient alert and oriented to person only. Patient confused and forgetful. Presents with flat affect, appears depressed, thoughts of hopelessness and helplessness observed. Patient fixated on the idea that she has reached an age too old to work and she needs to reach a family member to come pick her up. Patient re-oriented several times that she is at the hospital which had no success. Patient states that she is old and her body is "giving up". Patient became tearful at times. Patient also fixated that her vision has changed and she needs the eye doctor to come visit her "here at work". Patient denies pain or discomfort. Denies SI/HI/AH/VH. Denies feeling depression or anxiety. No aggression observed. Patient reporting to the nurses station or yelling out of her room several times this evening. Patient asking the same questions over and over about using the pay phone, reaching her family, showing nurse that all her items are "packed" so she can leave. Patient re-oriented to the time several times which could be why she was feeling tired. Patient encouraged to lay down and rest several times. Patient was able to lay down later in the evening and appears to be resting well at this time. Patient did take HS medication whole without difficulty. Declined HS snack. Patient was becoming frustrated with other peers entering her room which is understandable.
[2019-03-23 09:16] VITALS: BP 117/55
--- NOTE | 2019-03-23 11:31 | NUR ---
Nutrition Follow Up: Visited briefly w/ pt in room. She is eating 100% of a lot of meals, overall with an 85% meal average from 03/17 - 03/23. Weights have been stable at 152-155# on 03/04 and again on 03/11. Suspect documented wt from 03/18 at 128# to be an error as pt does not appear to weigh this based on physical appearance. Inquired about need for food/menu changes. Pt confused and unable to respond appropriately, stating "how did I get involved?" Shared upcoming meals and pt OK with all selections; likes a variety. Low nutrition risk.
--- NOTE | 2019-03-23 16:30 | NUR ---
1000 Up ambulating t/o unit without s/o distress. Orientated to person only. Denies SI/HI, pain. Compliant with meds, assessment and care. Calm and cooperative. Breath sounds clear t/o, bilaterally equal. Reg HR auscultated. Color pink with brisk capillary and palpable peripheral pulses. Active bowel sounds over soft, rounded abdomen. Voids independently. Requesting toenails to be clipped, done without issue. 1300 Approached by SW to speak with pt about going home. Pt. very tearful and angry about not being able to go home and believes younger brother is trying to take her money/house. Reminded her that a welfare check was done and unsafe conditions were found. Became more angry and stated, " I might as well commit suicide!" and upon further questioning, "I should just go off and hang myself." Denies SI when asked directly saying she is upset with brother and wants justice. Dr. Mullins notified. Will continue to observe in dining room. Tearful. Calmed down after about 15 min. 1645 Multiple requests about guardianship hearing. Becomes frustrated and tearful at times but is calm and cooperative. No more statements regarding suicide/hanging or outbursts of anger.
[2019-03-23 20:45] VITALS: BP 141/72
--- NOTE | 2019-03-24 00:57 | NUR ---
Care assumed of patient at 1915: Patient seated in a chair in her room at start of shift. Patient alert and oriented to person only. Patient confused and forgetful. Patient easily agitated and frustrated this evening. Patient withdrawn and isolative this evening to her room. Patient observed sitting in her chair with her personal belongings stacked on her lap, staring at the wall, several times this evening. Patient encouraged to come to dayroom for snack and to speak with nurse. Nurse asked patient about what books she was reading, offered a puzzle, offered pencil for writing. Patient declined all. Patient became more irritable each time nurse tried to speak with her. Patient would only answer with "I need to go home now", "This is not fair", "my little brother is trying to steal my house, he needs to mind his own business", "The doctor is not doing his job". This made assessment quite difficult. Patient did deny pain or discomfort. Patient malodorous when she removed her sweater and shoes. Nurse offered to assist patient with shower, bath or sponge bath. Patient stated she would take a bath tomorrow when she gets home. Patient resistive to any assistance offered. Patient presents with flat affect, depressed mood. Denies SI/HI/AH/VH. Patient restless, presenting to nurses station several times demanding to go home now. Required frequent re-direction. Patient has been up a couple times showing difficulty staying asleep. Took HS medication without difficulty. Staff continues to offer frequent re-direction on current time and need to rest.
[2019-03-24 08:31] VITALS: BP 140/71
[2019-03-24 08:38] LABS: URINE BILIRUBIN NEGATIVE (Negative); URINE BLOOD 3+ (Negative); URINE CLARITY SL CLOUDY; URINE COLOR YELLOW; URINE GLUCOSE-RANDOM* NEGATIVE (Negative); URINE KETONES NEGATIVE (Negative); URINE NITRITE-REFLEX NEGATIVE (Negative); URINE PROTEIN (DIPSTICK) NEGATIVE (Negative); URINE UROBILINOGEN 0.2 E.U./dl (0.2-1.0)
[2019-03-24 08:54] LABS: URINE LEUKOCYTES-REFLEX 1+ (Negative)
[2019-03-24 10:38] LABS: ABSOLUTE NEUTROPHILS 3.6 thou/uL (1.4-8.2); BASOPHILS 0.6 % (0.0-2.0); EOSINOPHILS 3.1 % (0.0-3.0); HEMATOCRIT 36.4 % (37.0-47.0); HEMOGLOBIN 11.9 gm/dL (12.0-15.0); LYMPHOCYTES 26.6 % (24.0-44.0); MCH 30.4 pg (26.0-34.0); MCHC 32.8 g/dL (28.0-37.0); MCV 92.9 fL (80.0-100.0); MONOCYTES 9.3 % (1.0-8.0); PLATELET COUNT 313 thou/uL (150-400); POLYS 60.4 % (36.0-66.0); RBC 3.92 mil/uL (4.20-5.00); RDW 12.6 % (10.5-14.5)
[2019-03-24 10:42] LABS: CALCIUM 9.9 mg/dL (8.5-10.1); CREATININE 0.7 mg/dL (0.6-1.0); POTASSIUM 4.3 mmol/L (3.5-5.1)
--- NOTE | 2019-03-24 12:11 | NUR ---
Pt's current goal is to attend at least one RT group per day to aid in the development of positivie coping skills to utilize during times of frustration/agitation. Pt's frustration tolerance continues to improve as well as socializing with peers. Yesterday pt was noticibly more sad or discouraged than normal as she see's peers discharging. No change to goal plan
[2019-03-24 12:13] LABS: CASTS None Seen /LPF (None Seen); CRYSTALS None Seen /LPF (None Seen); SQUAMOUS 4-10 Moderate /LPF (0-3)
[2019-03-24 12:14] LABS: BACTERIA-REFLEX 1-9 Few /HPF (None Seen); URINE RBC >20 Many /HPF (0-2); URINE WBC-REFLEX 6-15 Few /HPF (0-5)
--- NOTE | 2019-03-24 12:45 | NUR ---
ARISTEO and psych doctor spoke with Daniela with [employer] who says she has everything she needs to file a petition for guardianship for pt, and will be filing the petition as of yesterday. SW team will continue to follow pt during her stay.
--- NOTE | 2019-03-24 18:31 | NUR ---
Frustrated with continued hospitalization. Frequently asks to go home and becomes tearful blaming younger brother. Denies SI/HI, pain. Orientated to person only. Very forgetful with confused speech. Breath sounds clear t/o, bilaterally equal. Reg HR auscultated. Color pink with brisk capillary refill. Active bowel sounds over soft, rounded abdomen. Void per hat with bloody urine per report, UA sent. [address] Dr[address]. Mullins aware of labs, starting Cedinir per order. No s/o distress except for labile emotions r/t wanting to be discharged. Also stating that she is getting a cold sore on R lower lip. Oralexy ordered and applied. 1830 Up ambulating in halls intermittently tearful/sad. Continues to want to be discharged.
[2019-03-24 19:56] VITALS: BP 118/50
--- NOTE | 2019-03-25 03:53 | NUR ---
Pt. did exhibit some paranoid behavior and would not go back into room late last evening. She thought there were people in there and they would not come out. A pt. did wander into her room, but was easily redirected out. She became anxious about not being safe. Pt. taken back to her room and given reassurance that no one was in there. She was becoming more anxious. Prn seroquel was given (see emar) with relief noted. Pt. did rest quietly the remainder of the night.
[2019-03-25 08:19] VITALS: BP 116/50
[2019-03-25 10:39] VITALS: BP 116/50
[2019-03-25 10:58] VITALS: BP 116/50
[2019-03-25 11:14] VITALS: BP 116/50
--- NOTE | 2019-03-25 12:02 | NUR ---
0645 REPORT RECEIVED FROM OVERNIGHT SHIFT, PATIENT THIS MORNING TOOK EXTRA TIME TO GET MOVING THIS MORNING. SHE ATE BREAKFAST TOOK MEDICATION WITHOUT INCIDENCE. PATIENT QUIET CALM COOPERATIVE. PATIENT PARTICIPATED IN GROUPS THEN WANTED TO LIE DOWN TO REST. WILL CONTINUE TO MONITOR PATIENT FOR BEHAVIOR AND SAFETY.
[2019-03-25 19:43] VITALS: BP 131/54
--- NOTE | 2019-03-26 05:07 | NUR ---
ASSUMED CARE OF PATIENT AT APPROXIMATELY 1915, ON 03/25/19. SHE WAS IN BED UPON ONE TO ONE APPEARING WITH A FLAT AFFECT, BUT WAS PLEASANT AND TOOK MEDICATION ORDERED WITH NO PROBLEMS. SHE DID APPEAR CONFUSED AT TIMES WHEN ASKING PATIENT ASSESSMENT QUESTIONS. SHE DENIED SI HI AND HALLUCINATIONS AT THIS TIME. SHE C/O BILATERAL SHOULDER PAIN STATING 'THEY HURT' THIS NURSE ADMINISTERED PRN TYLENOL ORDERED WITH RELIEF EVIDENCED BY PATIENT WITH EYES CLOSED WITH NO S/S OF DISTRESS. NURSING WILL MAINTAIN ALL PRECAUTIONS TO ENSURE SAFETY AT ALL TIMES.
[2019-03-26 08:36] VITALS: BP 101/56
--- NOTE | 2019-03-26 11:20 | NUR ---
PATIENT CALM AND AGREEABLE BUT EXTREMELY CONFUSED. REPEATEDLY ASK SAME QUESTIONS. COMPLIANT WITH MEDICATIONS - GOOD APPETITE. CONCERNED WITH HOME TAXES AND FINANCES AND APPROACHED NURSING STATION SEVERAL TIMES CONVEYING THIS TO NURSES. WANDERS ABOUT UNIT AND HAS ONE CONCERN AFTER ANOTHER. PATIENT WORRISOME ALL THE TIME.
[2019-03-26 20:14] VITALS: BP 116/54
--- NOTE | 2019-03-27 05:03 | NUR ---
1909-Report received from day shift nurse and care assumed. Neeta asked why she was here and she was educated, she had a worried/flat and tense affect. She was compliant with her HS medication, remained tense and slept off and on tonite in her room. Flat, depressed affect.
[2019-03-27 07:32] VITALS: BP 99/52
--- NOTE | 2019-03-27 13:34 | NUR ---
CONTINUITY OF CARE THIS MORNING FROM [facility]. PATIENT HAS BEEN PLEASANT - AFFECT BRIGHT AND MOOD CALM - HAS MOMENTS OF UNREST - MED COMPLIANT AT BREAKFAST. OBSERVANT - NOTICED PEER HAD HER GLASSES ON AND INFORMED STAFF OF THIS. WAS CALM AND EXPRESSED CONCERNS. APPRECIATIVE WHEN RETRIEVED. PATIENT STARTED EARLY AFTERNOON BECOMING RESTLESS AND QUESTIONING WHEN SHE CAN GO HOME REPEATEDLY. STAFF HAS ATTEMPTED TO REASSURE PATIENT SEVERAL TIMES. EARLY IN AFTERNOON SAT IN DINING ROOM QUIETLY. CONFUSED BUT FIXATED ON HER FINANCES AT HOME AND BILLS THAT NEED TO BE PAID. AMBULATORY AND STEADY ON HER FEET. CONTINENT AND HANDLES OWN ADL'S.
[2019-03-27 19:24] VITALS: BP 131/58
--- NOTE | 2019-03-28 03:35 | NUR ---
ASSUMED CARE FROM [employer] PT FOUND IN BED SLEEPING QUIELTY RESP EASY , COLOR PINK, BED ALARM ON FOR SAFETY, FREQ CHECKS. RESTED WELL THROUGHOUT FREQ ROUNDS. UP TO BATHROOM X1 THIS SHIFT GAIT STEADY, PT RETUNED TO BED AND FELL BACK TO SLEEP.WILL CONTINUE WITH CURRENT PLAN OF CARE AND WILL REPORT CHANGES OR ABNORMAL FINDINGS.
--- NOTE | 2019-03-28 09:22 | NUR ---
ARISTEO received an email from Daniela Flowers with [employer] stating that the petition for guardianship was filed on 03/23/19 and she will let the team known when pt's hearing will be. SW team will continue to follow pt during her stay on this unit.
[2019-03-28 10:05] VITALS: BP 147/69
--- NOTE | 2019-03-28 10:26 | NUR ---
ASSUMED CARE AT 0700. PATIENT IS ALERT AND ORIENTED X4. PATIENT IS CALM AND INT THE DINING ROOM EATING BREAKFAST. PATIENT MCGRAW, PARK ATTENDANT ARE EQUAL. LUNGS ARE CLEAR. ABD IS SOFT WITH BSX4. PATIENT TO PARTICIPATE IN GROUP. WILL CONTINUE TO MONITER.
[2019-03-28 19:42] VITALS: BP 114/42
--- NOTE | 2019-03-29 03:28 | NUR ---
ASSUMED CARE OF PATIENT AT APPROXIMATELY 1915 ON 03/28/19. PATIENT IS CALM AND COOPERATIVE WITH STAFF AND OTHER PATIENTS. SHE DOES HOWEVER MINIMALLY INTERACTS AND ISOLATES HERSELF TO HER ROOM AND APPEARS TO BE PARANOID ABOUT WHO ENTERS THE ROOM. SHE DID REPORT TO THIS NURSE 'I AM GOOD TODAY.' SHE DID DENY SI HI AND ANY HALLUCINATIONS. SHE IS ALSO MED COMPLIANT. SHE DENIES MEDICAL CONCERNS WITH NO S/S OF DISTRESS. NURSING WILL MAINTAIN ALL PRECAUTIONS TO ENSURE SAFETY AT ALL TIMES.
[2019-03-29 09:45] VITALS: BP 130/51
--- NOTE | 2019-03-29 09:55 | NUR ---
0685 REPORT RECEIVED FROM OVERNIGHT SHIFT, PATIENT AWAKE SITTING IN DAY ROOM. PATIENT ATE BREAKFAST TOOK MEDICATION WITHOUT INCIDENCE. PATIENT WANTS TO GO HOME AND DOES NOT UNDERSTAND WHY SHE CANNOT GO BACK TO HER HOME. PATIENT IS COOPERATIVE INTERACTS WITH OTHER PATIENTS. WALKS AROUND THE UNIT, PARTICIPATES IN GROUPS. WILL CONTIUNE TO MONITOR PATIENT'S BEHAVIORS.
[2019-03-29 13:14] VITALS: BP 130/51
[2019-03-29 19:25] VITALS: BP 129/54
--- NOTE | 2019-03-30 02:29 | NUR ---
ASSUMED CARE OF PATIENT AT APPROXIMATELY 1915 ON 03/29/19. PATIENT IS IN ROOM DURING ONE TO ONE, BUT WAS BRIEFLY OBSERVED WALKING THROUGH THE MILIEU PRIOR TO RETURNING TO HER ROOM. SHE APPEARS WITH A BLANK AFFECT AT TIMES, YET IS BRIGHT OTHERS. SHE ENJOYED SHARING THE BOOKS SHE WAS READING SHE REPORTED. SHE DID RUMINATE ON WHEN SHE WAS LEAVING AND THAT 'IT WOULD BE TOMORROW IM SURE, BECAUSE I NEED TO GET HOME.' SHE REPEATED SIMILAR STATEMENTS SEVERAL TIMES. SHE DENIED FEELINGS OF DEPRESSION, SI HI AND HALLUCINATIONS AND DOES NOT APPEAR TO BE RESPONDING TO INTERNAL STIMULI. SHE DID NOT REPORT MEDICAL CONCERNS WITH NO S/S OF DISTRESS. NURSING WILL MAINTAIN Q12 CHECKS TO ENSURE SAFETY AT ALL TIMES.
--- NOTE | 2019-03-30 07:51 | NUR ---
Nutrition Follow Up: No new nutrition changes in the last week. Pt continues to eat 100% of majority of meals. 90% meal average x 19 meals over the last 7 days (03/23 - 03/29). Continues on daily vitamin B12. Weight is up slightly over the last 2 weeks, +9#. 03/11: 155# 03/25: 164# BMI would be 26.5 kg/m2 per most commonly documented height in EMR. Do not recommend any diet changes/calorie restrictions at this time. Continue to monitor weight for any further gain. Remains low nutrition risk.
[2019-03-30 09:09] VITALS: BP 93/61
[2019-03-30 19:41] VITALS: BP 131/51
--- NOTE | 2019-03-31 00:02 | NUR ---
Care assumed of patient at 1915: Patient in room at start of shift, restless, fidgeting. Moving items about her room, stacking multiple papers/cups/linens/seasoning packets. Room was cleaned and multiple items thrown away with patient present. Hoarding tendencies observed. Patient asking multiple questions this evening. Patient becoming defensive when educated that her door needs to remain cracked open so staff can monitor her. Blunted affect, perplexed look when speaking with nurse. Alert and oriented to person only. Confused and forgetful. Denies pain or discomfort. Denies SI/HI/AH/VH. No s/s of paranoia or delusional behaviors. Patient declined HS snack. Took HS medication whole without difficulty. Patient asking multiple questions over and over. Did isolate self to her room throughout the evening. Retired to bed at a reasonable hour and has been resting quietly.
[2019-03-31 08:14] VITALS: BP 130/58
--- NOTE | 2019-03-31 10:09 | NUR ---
ASSUMED CARE OF PATIENT AT 0715 ON 03/31/2019. SITTING IN DAYROOM QUIETLY AT THIS TIME. STATES 'WAITING FOR BREAKFAST. DENIES PAIN, SI/HI AND AVH. AT 0830 PATIENT IN ROOM CLEANING UP. TAKES MEDS WHOLE. DENIES NEEDS AT THIS TIME.
[2019-03-31 20:08] VITALS: BP 126/59
--- NOTE | 2019-04-01 02:13 | NUR ---
PATIENT HAS BEEN CONFUSED TONIGHT. SHE WAS IN BED AT 1900. WHEN ASSESSING HER SHE STATES THAT SHE IS NOT USED TO SLEEPING ALONE IN A ROOM. SHE STATES SHE IS USED TO HAVING HER SISTER IN THE OTHER BED. ANOTHER PATIENT MOVED TO HER ROOM TONIGHT AND THIS DID HELP EASE HER ANXIETY ABOUT BEING ALONE. LATER ON IN NIGHT PATIENT GOT UP BACK TO BACK 4 TIMES COMING OUT TO THE DINING ROOM DRESSED AND READY FOR THE DAY. SHE WOULD GO BACK TO ROOM TO LAY DOWN AFTER BEING REMINDED THAT IT WAS THE MIDDLE OF THE NIGHT AND THEN SHE WOULD COME BACK OUT A FEW MINUTES LATER WITH HER BELONGINGS. PATIENT IS COOPERATIVE AND TOOK HER MEDS WITHOUT ISSUE. WILL CONTINUIE TO MONITOR.
--- NOTE | 2019-04-01 05:40 | NUR ---
PATIENT HAS BEEN CONFUSED TONIGHT AND UP AND DOWN TO DINING ROOM AND ROOM. PATIENT CAME NOW TO NURSE STATION STATING THAT HER RIGHT SHOULDER IS HURTING. SHE WAS LAYING ON THAT SIDE IN BED. SHE STATES IT HURTS BECAUSE SHE WAS TRYING TO PULL THE PULL CORD ON HER GIMP TACKER AND NOW IT HURTS. SHE HAS BEEN DELUSIONAL TONIGHT AND THINKING SHE HAD 3 OR 4 PEOPLE THAT WERE SLEEPING IN THE OTHER BED IN HER ROOM AT DIFFERENT TIMES. TYLENOL 650MG GIVEN FOR PAIN AND KAREN DE DIOS APPLIED TO SHOULDER. WILL CONTINUE TO MONITOR.
--- NOTE | 2019-04-01 07:00 | NUR ---
Assumed care of patient this am. Patient awake, ambulating in the bedroom packing her belongings in a paper bag. Patient states that she has been having pain in her right shoulder. Patients affect soft and relaxed. Patient is calm, content, and cooperative. Patient takes medications whole with thin fluids. Patients assessment reveals clear breath sounds, active bowel sounds, and s1 s2 heard with auscultation.
[2019-04-01 07:30] VITALS: BP 126/59
[2019-04-01 07:37] VITALS: BP 126/54
[2019-04-01 19:51] VITALS: BP 151/57
[2019-04-01 23:06] VITALS: BP 151/57
--- NOTE | 2019-04-02 00:15 | NUR ---
PATIENT WAS SLEEPING AT 1900 WHEN I CAME ON SHIFT. PATIENT ASSESSMENT DONE AND VSS. PATIENT TOOK MEDS WHOLE AT HS AND WENT BACK TO SLEEP. SHE HAS JUST NOW WALKED OUT TO NURSE'S STATION THINKING THAT IT IS DAY TIME. SHE IS ALL DRESSED FOR THE DAY. TOLD PATIENT THAT IT IS MID NIGHT AND SHE DOESN'T KNOW IF SHE CAN GO BACK TO SLEEP BUT SHE DOES FEEL SLEEPY. GOT PATIENT A DRINK OF WATER AND WILL SEE IF SHE CAN GO BACK TO BED SOON. PATIENT GIVEN TYLENOL 650MG AT HS FOR RIGHT SHOULDER PAIN AT 3. A FEW MINUTES AFTER TAKING THE TYLENOL SHE DENIED HAVING PAIN. PATIENT IS AMBULATING AND STEADY ON HER FEET. SHE IS MORE ORGANIZED AND LESS CONFUSED TONIGHT THAN FROM LAST NIGHT WHEN I WORKED WITH HER. SHE IS PLEASANT AND COOPERATIVE. SHE IS WELL GROOMED. WILL CONTINUE TO MONITOR.
--- NOTE | 2019-04-02 07:00 | NUR ---
Assumed care of patient this am. Patient awake sitting in her room dressed neatly with makeup on. Patient denies pain. Patient ambulates without assistance. Patient takes medications whole with fluids. Patient is alert and oriented x2-3. Patients assessment reveals clear breath sounds, diminished in the bases, active bowel sounds, and s1 s2 heard upon auscultation.
[2019-04-02 07:30] VITALS: BP 112/59
[2019-04-02 09:29] VITALS: BP 112/59
[2019-04-02 09:30] VITALS: BP 112/59; BP 131/80
--- NOTE | 2019-04-02 12:33 | NUR ---
Date of Admission: 03/01/19 Date of Activity Therapy Assessment:03/04/2019 Activity Goal: One group per day Initial Goal: Pt to attend at least one recreation therapy group per day to aid in the development of positive coping skills to utilize during time of frustration/agitation. Weekly progress towards goal: Did not achieve Group participation level: Minimal/Passive Behaviors observed:Pt can become easily frustrated. Pt often wanders in and out of groups and has a difficult time focusing on the task at hand. Pt is distracted by cleaning and reorganizing the items in her room. Pt avoids answering questions. Plan: No change towards goal
[2019-04-02 20:36] VITALS: BP 134/68
[2019-04-03 00:17] VITALS: BP 134/68
--- NOTE | 2019-04-03 03:21 | NUR ---
PT IN AND OUT OF ROOM EARLY IN THE EVENING. INTERACTING LITTLE WITH STAFF AND PEERS. FOCUSED ON GOING HOME. AFTER SNACK, TOOK HS MEDS W/O PROBLEM. AFFECT FLAT, BUT CAN BE SPONTANEOUS, AND ANIMATED WITH CONVERSATION. HAS SLEPT WELL THROUGH THE NIGHT.
[2019-04-03 09:25] VITALS: BP 134/72
[2019-04-03 10:35] VITALS: BP 134/72
--- NOTE | 2019-04-03 14:05 | NUR ---
Assumed care at 0700. Patient awake and alert. No delusions noted. Patient took meals and medications well. Ambulating around the unit. Will contiinue to monitor.
--- NOTE | 2019-04-03 16:18 | NUR ---
SW received notice via email from [employer] that pt's hearing for guardianship is May 01, 2019 @ 930 am. SW team will continue to follow pt during her stay.
--- NOTE | 2019-04-03 16:25 | NUR ---
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 ARISTEO spoke with this pt and the proposed new roommate, and they both said they were okay with being roommates. ARISTEO provided an update to nursing team. SW team will continue to follow pt during her stay.
[2019-04-03 19:40] VITALS: BP 113/55
[2019-04-03 19:45] VITALS: BP 113/55
--- NOTE | 2019-04-04 04:10 | NUR ---
PATIENT HAS BEEN SLEEPING IN BED SINCE 1999. SHE AWOKE TO TAKE HER HS MEDS AND WENT BACK TO SLEEP. CLOTHES WASHED THIS EVENING. PATIENT C/O 3/5 JOINT PAIN IN RIGHT SHOULDER. BENGAY APPLIED TO AREA. PATIENT AMBULATES INDEPENDENTLY AND TAKES SELF TO THE BATHROOM. PATIENT CALM AND COOPERATIVE WHEN SHE WAS AWAKE. TOOK PILLS ONE AT A TIME WITH WATER WITHOUT ISSUE. CONTINUING TO MONITOR.
[2019-04-04 08:00] VITALS: BP 114/54
--- NOTE | 2019-04-04 08:45 | NUR ---
PT WANTING TO KNOW ABOUT HER STRIPPED SHIRT, PT HAD VEST OF OUTFIT. TOLD PT THAT IT WAS IN THE DRYER. PT OK WITH THAT. PT MAKES HER OWN BED. PT UPSET ABOUT NEIGHBOR THAT DOESN'T MAKE HER BED. PT STATED SHE DIDN'T KNOW WHERE SHE WAS AND THAT SHE DID KNOW IT WAS A NEW YEAR. PT VERY PLEASANT, JUST CONFUSED.
[2019-04-04 20:00] VITALS: BP 122/56
[2019-04-04 20:16] VITALS: BP 122/56
--- NOTE | 2019-04-05 01:40 | NUR ---
PATIENT HAS BEEN IN HER ROOM TONIGHT. SHE HAS BEEN CALM AND COMPLIANT AND IN GOOD SPIRITS. SHE HAS BEEN SLEEPING SINCE 2099. SHE STATES SHE IS NOT HAVING ANY PAIN IN HER RIGHT SHOULDER TONIGHT. PATIENT TOOK HER MEDS WHOLE AND ONE AT A TIME. NO BEHAVIORS NOTED . WILL CONTINUE TO MONITOR.
[2019-04-05 08:00] VITALS: BP 126/63
--- NOTE | 2019-04-05 08:49 | NUR ---
PT UP THIS AM READY FOR BREAKFAST. PT DENIES ANY PAIN. PT TAKES MEDS WITHOUT ANY ISSUES. PT ORIENTED TO SELF. PT WONDERS AROUND UNIT AND STAYS CLOSE TO ROOM. PT SITS IN CHAIR IN ROOM AT TIMES.
[2019-04-05 09:00] VITALS: BP 126/63
--- NOTE | 2019-04-05 11:58 | NUR ---
PT GOT SERVED [facility] PAPERWORK ON COURT DATE FOR GUARDIANSHIP, PT TOOK IT WELL.
[2019-04-05 19:46] VITALS: BP 130/73
--- NOTE | 2019-04-06 03:34 | NUR ---
TOOK OVER THE CARE OF THIS PATIENT AT 1920. PATIENT IS ALERT AND ORIENTED TO PERSON ONLY. PATIENT STEADY ON FEET. GETS UP AND WANDERS THE UNIT. PATIENT HAS BEEN CALM AND COOPERATIVE THIS SHIFT WITH NO SIGNS OF AGRIVATION OR SI. TOOK MEDS WITHOUT ANY PROBLEM. SLEPT MOST OF NIGHT. DENIES PAIN.
--- NOTE | 2019-04-06 07:30 | NUR ---
Assumed care of patient this am. Patient up ad nathalie ambulating in the hallway. Patients dress is neat and tidy. Patient takes medications whole with fluids. Patient denies pain. Patients assessment shows clear breath sounds, active bowel sounds, and s1 s2 heard with auscultation. Patient is confused and believes that she is an employee of [facility].
[2019-04-06 08:00] VITALS: BP 126/57
[2019-04-06 08:35] VITALS: BP 126/57
--- NOTE | 2019-04-06 10:36 | NUR ---
Nutrition: Weekly follow up continues. No new nutrition changes. Meal average at 98% per the last 18 recorded meals (03/30 - 04/05). Chart states oriented to self, thus pt not interviewed. Has ate extremely well entire stay, > 1 month now. No further weight gain last week, from 164# per 03/25 to 163.9# per 04/01. Overall, up +9# since mid-February. Remains on B12 supplementation. Low risk.
--- NOTE | 2019-04-06 11:33 | NUR ---
Yesterday a chemical milling processor came to serve pt guardianship documents. ARISTEO contacted Filemon Chowdary and brought the creative project manager to him. ARISTEO, Filemon Chowdary, and chemical milling processor met with pt in the group room. It was explained to pt when her court date is and her transactional attorney information. She was also told that some time soon her transactional attorney will come to visit. ARISTEO asked pt if she would like to call her transactional attorney. Pt said she would like to wait and process this information. Pt was calm hearing the news. Today ARISTEO talked with pt and asked how she like her new room and her new roommate. Pt reported that she must have a good roommate because she didn't even notice she was there. She said she is happy with the arrangement also because of the windows. ARISTEO team will continue to follow pt during her stay on this unit.
[2019-04-06 19:44] VITALS: BP 94/35
--- NOTE | 2019-04-07 03:43 | NUR ---
ASSUMED CARE AT 1915 ON 04/06/19, PATIENT IS ALERT AND ORIENTED X1-2. SHE IS CALM AND COOPERATIVE, APPEARS WITH A EUTHYMIC AFFECT. SHE WONDERS IN THE MILIEU AND INTERACTS WITH SELECT PEERS. SOMEWHAT DOES NOT MAKE SENSE IN SPEECH. SHE IS PLEASANTLY CONFUSED. SHE DENIES SI HI AND HALLUCINATIONS AND DOES NOT APPEAR TO BE RESPONDING TO INTERNAL STIMULI. SHE DENIED MEDICAL CONCERNS WITH NO S/S OF DISTRESS. NURSING WILL MAINTAIN ALL PRECAUTIONS TO ENSURE SAFETY.
--- NOTE | 2019-04-07 07:45 | NUR ---
PT UP AND IN DINING ROOM. PT CALM AND COMPLIANT WITH MEDS. PT TAKES MEDS WHOLE. PT MAKES HER OWN BED EVERY MORNING. PT HAS OCD TRAITS. PT PLACED SUGAR PACKETS IN A ROLE LINED UP ON TABLE. PT ALSO LIKES TO HAVE THE PAPER AND KEEPS PAPERS SHE HAS FINISHED WITH COLORING OR PAINTING. PT STATED SHE WOULD LIKE TO GO HOME SOON.
[2019-04-07 08:30] VITALS: BP 105/55
[2019-04-07 19:26] VITALS: BP 123/57
--- NOTE | 2019-04-08 03:26 | NUR ---
ASSUMED CARE OF PATIENT AT 1915 ON 04/07/19. DURING ONE TO ONE WITH PATIENT THIS NURSE OBSERVED A PATIENT WITH A FLAT, SUSPICIOUS AFFECT. SHE APPROACHED THIS NURSE AND REPORTED THAT SHE NEEDED TO GO TO THE EYE DOCTOR 'RIGHT AWAY' BECAUSE SHE NEEDED A NEW PRESCRIPTION BECAUSE 'SUDDENLY I COULDNT READ HALF OF A LINE.' THIS NURSE ENSURED HER SHE COULD F/U WITH OPTOMETRY AFTER DISCHARGE. SHE DENIED SI HI AND HALLUCINATIONS, MINIMALLY INTERACTED WITH OTHER PATIENTS. SHE DID NOT REPORT OTHER MEDICAL CONCERNS AND DOES NOT APPEAR TO BE IN DISTRESS. NURSING WILL MAINTAIN ALL PRECAUTIONS TO ENSURE SAFETY AT ALL TIMES.
[2019-04-08 06:50] VITALS: BP 103/56
--- NOTE | 2019-04-08 15:38 | NUR ---
SW visited with pt 1:1 in her room. She did not want to join group - she wsa feeling tired of all the people on the unit. Although she did rememebr her roomates name and states " she sleeps alot".
--- NOTE | 2019-04-08 16:44 | NUR ---
PATIENT ORIENTED TO SELF AND LOCATION AND PLEASANT WITH STAFF AND OTHER PATIENTS. 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 SHE ALSO HOPES OTHER PATIENTS HER GET BETTER. SHE RESTED IN HER ROOM FOR A COUPLE HOURS AND CHOSE NOT TO PARTICIPATE IN GROUP THERAPY. IN THE AFTERNOON, SHE PERIODICALLY GO TO HER ROOM BUT MOSTING WAS IN DINING ROOM WATCHING TV WITH OTHER PATIENTS. PATIENT HAS GOOD APPETITE.
[2019-04-08 21:06] VITALS: BP 137/69
--- NOTE | 2019-04-09 02:35 | NUR ---
ASSUMED CARE OF PATIENT AT APPROXIMATELY 1915 ON 04/08/2019, THROUGHOUT THE EVENING SHE APPEARS WITH A CONFUSED AFFECT, IS CALM AND COOPERATIVE, TANGENTIAL IN THINKING AT TIME. THIS NURSE CONDUCTED ONE TO ONE WITH PATIENT AND SHE HAS A PERPEXLED AFFECT AND RECALLS THAT SHE IS TRYING TO GET 'GOOD GRADES BECAUSE I HAVENT GRADUATED 12TH GRADE.' THIS NURSE ATTEMPTED TO GROUND PATIENT, BUT WAS UNSUCCESSFUL. AT 0200 PATIENT IS IN THE DAY ROOM SITTING AND STARING OUT THE WINDOW. SHE DENIES SI HI AND HALLUCINATIONS. SHE DENIES MEDICAL CONCERNS WITH NO S/S OF DISTRESS. NURSING WILL MAINTAIN ALL PRECAUTIONS FOR SAFETY.
[2019-04-09 09:08] VITALS: BP 126/59
[2019-04-09 09:29] VITALS: BP 126/59
--- NOTE | 2019-04-09 09:35 | NUR ---
0645 Care resummed from overnight shift, patient very sleepy this morning. Patient got up ate breakfast took medication without incidence, patient calm cooerative has belongings packed in room. Patient wants to go home, will continue to monitor patient for safety and behaviors.
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
[2019-04-09 14:53] LABS: HEMATOCRIT 34.2 % (37.0-47.0); HEMOGLOBIN 11.1 gm/dL (12.0-15.0); MCH 30.2 pg (26.0-34.0); MCHC 32.5 g/dL (28.0-37.0); MCV 92.7 fL (80.0-100.0); RBC 3.68 mil/uL (4.20-5.00); RDW 12.9 % (10.5-14.5); WBC 6.8 thou/uL (4.0-11.0)
[2019-04-09 15:14] LABS: ALBUMIN 3.3 g/dL (3.4-5.0); CALCIUM 9.2 mg/dL (8.5-10.1); CREATININE 0.8 mg/dL (0.6-1.0); POTASSIUM 4.4 mmol/L (3.5-5.1); TOTAL BILIRUBIN 0.2 mg/dL (<0.1-1.0); TOTAL PROTEIN 6.2 g/dL (6.4-8.2)
[2019-04-09 19:44] VITALS: BP 103/63
--- NOTE | 2019-04-10 00:37 | NUR ---
ASSUMED CARE ON 04/09/19 @ 19:15, PATIENT UP AD KYE AND AMBULATING THROUGHOUT THE UNIT. CONFUSION NOTED, ASKS REPEATEDLY ABOUT APPLYING FOR A JOB AND EARNING MONEY FOR GAS AND OIL TO DRIVE HER CAR. SAYS, I NEED A JOB. IM POOR. COOPERATED WITH ASSESSMENT, HEART RRR, S1 S2 NOTED, LUNGS CTA ABD NORMOACTIVE BOWEL SOUNDS X 4 Q, REPORTS HAD A BM ON 04/08/19. REFUSED MOM WHEN OFFERED. BECAME AGITATED WHEN ASSESSED FOR ORIENTATION AND WHEN DISCUSSING HER HOSPITAL STAY. SEROQUEL 50MG PRN PROVIDED @2150. PATIENT RETIRED TO BED @ 2200, AND IS IN BED WITH EYES CLOSED AND RESPIRATIONS EVEN AND UNLABORED AT THIS WRITING. BED IN LOW POSITION, WILL CONTINUE OBSERVATION Q 12 MINUTES FOLLOWING SAFETY PROTOCOL.
[2019-04-10 05:21] VITALS: BP 103/63
--- NOTE | 2019-04-10 06:07 | NUR ---
SLEPT 8.4 HOURS, WOKE FOR ABOUT 15 MINUTES @ 04:30
[2019-04-10 08:57] VITALS: BP 104/60
--- NOTE | 2019-04-10 12:46 | NUR ---
0710 ASSUMED CARE OF PATIENT ON 04/10/19. PATIENT SITTING IN DAYROOM IN CHAIR QIETLY. 0930 PATIENT IN ROOM STRAIGHTENING ROOM UP AND FIXING BED. NO GOAL SET FOR DAY YET PER PATIENT. STATES' I GOT MY BED MADE, DON'T LIKE A RUFFLED BED". PATIENT WAS CONCERNED DUE TO ROOMMATE NOT MAKING HER BED. NO COMPLAINTS OF PAIN, DENIES SI/HI AND AVH. MEDS TAKEN WHOLE WITHOUT DIFFICULTIES. A & O X2. LUNGS CLEAR, BOWL SOUNDS X4. UP AD KYE. DENIES NEEDS AT THIS TIME.
--- NOTE | 2019-04-10 14:43 | NUR ---
ARISTEO received a call from Simone with [facility] and in talking about another pt, he gave this pt's [facility] worker contact name and info of Jolynn Horvath [phone]. SW team will continue to follow pt during her stay on this unit.
--- NOTE | 2019-04-10 15:46 | NUR ---
PATIENT COMPLAINS OF SORE THROAT TO DR. LEDESMA AND STATES "I NEED TO GO SEE A DR I AM NOT FEELING GOOD. MY THROAT HURTS SO CAN I GO TO THE DRS AND THEN GO HOME TO REST". DR LEDESMA ASKS ME TO CALL HOSPITALIST TO NOTIFY OF PATIENTS COMPLAINT. DR DENIS PAGED AT THIS TIME.
--- NOTE | 2019-04-10 16:31 | NUR ---
ATTEMPTED TO OFFER PATIENT A THROAT LOZENGE, PATIENT IN BED WITH EYES CLOSED AT THIS TIME. WILL OFFER WHEN PATIENT IS AWAKE.
[2019-04-10 19:31] VITALS: BP 117/68
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
[2019-04-11 07:30] VITALS: BP 143/110
[2019-04-11 09:46] VITALS: BP 120/48
--- NOTE | 2019-04-11 10:59 | NUR ---
0720 ASSUMED CARE OF PATIENT ON 04/11/19. PATIENT IN BED AT 0720 BP AT THIS TIME WAS 143/110 SITTING UP IN BED, PULSE 63. AFTER PATIENT AMBULATED TO DAYROOM ABOUT 10 MIN LATER A RECHECK WAS DONE. BP 120/48 P 68. PATIEN SITTING IN DAYROOM WAITING FOR BREAKFAST. PATIENT TOOK MEDS WHOLE WITHOUT DIFFICULTY. DENIES SI/HI/ AND AVH- STATES "THAT IS NOT ME, I WOULD NOT HURT MYSELF" PATIENT ATTENDED RECREATIONAL THERAPY GROUP FROM [phone] - [phone]. 1000 AFTER GROUP PATIENT UP AMBULATING IN SAENZ WITH A STEADY GAIT. PATIENTS GOAL FOR THE DAY IS TO DECREASE ACHINESS TO RIGHT SHOULDER. REFUSES NEED FOR PAIN MED AT THIS TIME. AT 1020 TYLENOL 650 MG GIVEN FOR ACHINESS TO RIGHT SHOULDER PATIENT HAVING DIFFICULTY TO RATE PAIN STATES MAYBE A 4. PATIENT C/O SCRATCHY THROAT AND LOZENGE GIVEN .
[2019-04-11 11:50] VITALS: BP 104/67; BP 124/61
[2019-04-11 19:40] VITALS: BP 138/54
--- NOTE | 2019-04-12 03:08 | NUR ---
ASSUMED CARE OF PATIENT ON 04/11/2019 AT APPROXIMATELY 1915. THIS EVENING PATIENT WAS DISPLAYING MOOD LABILITY AND APPEARED WITH A FLAT SAD AFFECT. SHE WOULD GET VERBALLY AGGRESSIVE WITH THIS NURSE AND STATED 'YOU MIGHT WELL JUST GO BITE YOUR TONGUE AND OR SOMETHING.' SHE INITIALLY REFUSED HS MEDICATIONS STATING 'I DONT NEED THOSE. IM NOT TAKING THEM.' OFFICE CLINICIAN RESTORATION TECHNICIAN NOTIFIED WITH ORDERS FOR [place], IF PATIENT BECOMES PHYSICALLY AGGRESSIVE. AFTER FURTHER DISCUSSING WITH PATIENT AND DEESCALATING PATIENT THEN TOOK HS MEDS WILLINGLY. SHE THEN BECAME PLEASANT FOR APPROXIMATELY 30 MINUTES. SHE THEN EMERGED FROM HER ROOM CRYING STATING 'I KNOW IM SICK AND IM NOT GETTING ANY BETTER, MAYBE I SHOULD GO BE WITH GOD.' THIS NURSE ASKED IF PATIENT WAS EXPERIENCING SI TO THE RESPONSE OF 'WHATS THAT.' SHE DENIED HI, BUT DID REPORT FEELINGS OF DEPRESSION. SHE THEN RETIRED TO BED, AFTER REGAINING COMPOSURE. SHE DID NOT REPORT MEDICAL CONCERNS AND DID NOT APPEAR TO BE IN DISTRESS. NURSING WILL MAINTAIN ALL PRECAUTIONS TO ENSURE SAFETY AT ALL TIMES.
[2019-04-12 09:26] VITALS: BP 93/52
[2019-04-12 11:38] VITALS: BP 141/70
--- NOTE | 2019-04-12 13:53 | NUR ---
Up ambulating t/o unit without s/o distress. Flat affect. States she needs a new pair of glasses because the ones she currently has are not working. Gathering items from room and asking that they be put in locker. Denies pain, SI/HI. Occassionally irritable especially when asked questions during assessment. Verbalizing suspicions when asked questions. Breath sounds clear t/o, bilaterally equal. Reg HR auscultated. Color pink with brisk capillary refill and palpable peripheral pulses. +2 nonpitting edema in lower extremities. Independent with voiding. Active bowel sounds over soft, rounded abdomen.
--- NOTE | 2019-04-12 14:49 | NUR ---
This morning, pt came to with some of her belongings and said she does not want to store those items in her room, and want to take them home with her; pt continues to express her desire to go home. SW notified her nurse that pt wishes to store her items and asked if she would like to put them in her locker. Pt agreed and pt's nurse took her to put these items in her locker. SW team will continue to follow pt during her stay.
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
[2019-04-12 19:30] VITALS: BP 154/64
--- NOTE | 2019-04-13 04:43 | NUR ---
PT CALM ET COOPERATIVE THIS SHIFT. PT AMBULATES HALLS AD KYE WITH STEADY GAIT. PT TOOK MEDS WHOLE WITHOUT DIFFICULTY THIS SHIFT. PT CURRENTLY RESTING IN BED WITH EYES CLOSED. WILL CONTINUE TO MONITOR PER PROTOCOL.
[2019-04-13 09:18] VITALS: BP 130/65
--- NOTE | 2019-04-13 09:41 | NUR ---
Nutrition: Weekly follow up ongoing. No new nutrition changes or recommendations. Pt continues with excellent po intake. Meal average = 89% per the last 20 recorded meals from 04/06-04/12. Eating 100% of all meals the last 2 consecutive days. Stable weights near 164# since 03/25, last weighed 04/08. Guardianship process in progress. Remains low nutrition risk.
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
--- NOTE | 2019-04-13 16:45 | NUR ---
States her R shoulder hurts. 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 PRN Tylenol given with stated improvement. Alert and orientated x 2. Denies SI/HI. Breath sounds clear t/o, bilaterally equal. Reg HR auscultated. Color pink with brisk capillary refill and palpable peripheral pulses. Voiding independently. Active bowel sounds over soft, rounded abdomen. Ambulating around unit without s/o distress. Spoke with SW several times. 1430 States she doesn't feel well and didn't want to attend afternoon group. When asked more she stated she was tired and wanted to take a nap. No s/o distress. Straightening up sheets on bed and moving around room without difficulty.
[2019-04-13 19:24] VITALS: BP 153/68
--- NOTE | 2019-04-14 03:54 | NUR ---
Pt pleasant et cooperative this shift. No behaviors noted. Pt did not c/o shoulder pain this shift. Pt socializes with peers on the unit. All health assessments WNL. Pt took meds whole without difficulty. Pt ambulates halls ad nathalie with steady gait. Currently resting in bed with eyes closed. Will continue to monitor per protocol.
[2019-04-14 09:55] VITALS: BP 113/54
--- NOTE | 2019-04-14 10:05 | NUR ---
0645 RESUMMED CARE FROM OVERNIGHT SHIFT, PATIENT IN DAY ROOM ALERT CALM COOPERATIVE. PATIENT ATE BREAKFAST TOOK MEDICATION WITHOUT INCIDENCE, PATIENT'S AFFECT IS FLAT. PATIENT WANTS TO GO HOME, SHE DOES PARTICIPATE IN GROUPS. PATIENT WILL CONTINUE TO BE MONITORED FOR SAFETY AND BEHAVIORS.
[2019-04-14 20:00] VITALS: BP 144/61
--- NOTE | 2019-04-15 02:10 | NUR ---
ASSUMED CARE FROM DAY SHIFT, PT WALKING AROUND DAYROOM TOLERATING WELL, CALM COOPERATIVE WITH SCHEDULED MEDICATON. PT NOTED TO HAVE FLAT AFFECT, DENIES PAIN AT TIME OF ASSESSMENT. PT RESTING WELL THROUGHOUT FREQ ROUNDING. WILL REPORT CHANGES .
[2019-04-15 08:19] VITALS: BP 100/49
--- NOTE | 2019-04-15 10:29 | NUR ---
Up ambulating without s/o distress. Has newspaper with advertisement of classes about dementia. Requesting information to read about dementia. Will get article for her about dementia sometime today. Alert and orientated to self only. When asked about place and time she states she doesn't remember. Breath sounds clear t/o, bilaterally equal. Reg HR auscultated. Color pink with brisk capillary refill and palpable peripheral pulses +1/+4. Voiding independently. Active bowel sounds over soft, rounded abdomen.
[2019-04-15 11:04] VITALS: BP 106/50
[2019-04-15 19:36] VITALS: BP 120/54
--- NOTE | 2019-04-16 02:45 | NUR ---
ASSUMED CARE FROM DAY SHIFT PT UP IN HALLWAY, GAIT STEADY , ALERT TO SELF AND SITUATION, BUT CONFUSED TO PLACE TIME AND MONTH. CALM COOPERATIVE, PO MEDICATION TAKEN WITHOUT ISSUES. DISCUSS PLAN OF AND PT AGREEABLE. PT RESTING QUIETLY THROUGHOUT FREQ CHECKS, UP TIME ONCE DURING THE NIGHT BUT RETURN TO ROOM AND BED WITHOUT DIFF.WILL CONINTUE WITH CURRENT PLAN OF CARE AND WILL REPORT CHANGES AND ABNORMAL FINDINGS.
[2019-04-16 07:50] VITALS: BP 118/61
--- NOTE | 2019-04-16 07:58 | NUR ---
ASSUMED CARE OF PT AT 0715. PT IS A&O TO SELF. APPEARS CONFUSED. DENIES PAIN. IS STABLE. FREQUENT MONITORING CONTINUED THIS SHIFT. LABS & VITALS REVIEWED. PT IS CURRENTLY SITTING IN DINNING SAENZ EATING BREAKFAST QUIETLY. WILL CONTINUE TO MONITOR.
--- NOTE | 2019-04-16 19:30 | NUR ---
THE PATIENT WAS PACING THE FLOORS AND YELLING AT THE NURSES. AFTER SEVERAL ATTEMPTS TO REDIRECT THE PATIENT SHE WAS GIVEN PRN SEROQUEL. SHE RESPONDED WELL. PT STOPPED YELLING AT THE NURSES, BUT CONTINUED TO WALK UP & DOWN THE HALLWAY. SHE THEN SAT IN THE DINNING ROOM & WATCHED TV. PATIENT FREQUENTLY MONITORING.
[2019-04-16 19:40] VITALS: BP 151/74
[2019-04-17 07:25] VITALS: BP 104/54
--- NOTE | 2019-04-17 15:59 | NUR ---
ASSUMED PT CARE AT 0715. PT HAS FLAT AFFECT TODAY. THOUGH IS CALM. AMBULATES SELF IN HALLWAY AND DINNING AREA. TAKES MEDS WHOLE. PT HAD A VISITOR TODAY. WILL CONT POC.
--- NOTE | 2019-04-17 16:46 | NUR ---
pt had a visitor named Jim today; he is an admin from her [employer]. He brought her a book of hymns including ones that she wrote. Pt gave him her code so he can call her and visit. SW team will continue to follow pt during his stay.
[2019-04-17 19:50] VITALS: BP 108/34
--- NOTE | 2019-04-18 04:15 | NUR ---
Assumed care of pt @ 1900. Pt pleasant et cooperative this shift. Pt took meds whole without difficulty. Pt ambulates halls ad nathalie with steady gait. VSWNL. Assessment done et reveals no abnormalities at present time. No behaviors noted this shift. Currently resting in bed with eyes closed. Will continue to monitor per protocol.
[2019-04-18 07:51] VITALS: BP 133/56
--- NOTE | 2019-04-18 08:39 | NUR ---
PT TOOK MEDS THIS AM WITHOUT ANY ISSUES. PT STATED SHE WANTED TO GO HOME TODAY. PT STATED SHE HAD SHOWER YESTERDAY. PT LUNGS CLEAR. DENIES ANY PAIN.
[2019-04-18 09:00] VITALS: BP 133/56
--- NOTE | 2019-04-18 13:52 | NUR ---
PT UP WALKING AROUND IN THE SAENZ. PT DIDN'T SIT WITH GROUP THIS SESSION.
[2019-04-18 20:19] VITALS: BP 104/56
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
--- NOTE | 2019-04-19 04:54 | NUR ---
Patient up several times throughout the night. Patient noted to be restless. Nurse offered warm shower and to have her hair washed. Patient agreed. Shower completed, hair washed, all clothing changed. Patient had difficulty following one step directions during shower/dressing and did require max assist x1. Easily confused, forgetful. Trouble following safety directions due to shower floor being wet. Needed reminders to sit and hold grab bar when transferring. Patient pleasant, cooperative and appreciative.
[2019-04-19 07:42] VITALS: BP 141/57
[2019-04-19 08:00] VITALS: BP 141/57
--- NOTE | 2019-04-19 08:00 | NUR ---
Assumed care of patient this am. Patient awake sitting in the mileu. Patient denies si/hi. Patietn ambulates without assistance. Patient takes medications whole. Patient denies pain. Patients assessment shows clear breath sounds, active bowel sounds, and s1 s2 heard with auscultation. Patient is pleasantly confused and asking about getting a bag to put her belongings into to go home.
--- NOTE | 2019-04-19 14:40 | NUR ---
Nutrition followup: PO intake remains excellent, 75-100% of meals on regular diet. Weights in the 160s past several weeks. Guardianship process in progress. Continue as low nutrition risk.
[2019-04-19 19:42] VITALS: BP 124/57
--- NOTE | 2019-04-20 04:28 | NUR ---
Assumed care of pt @ 1900. Pt pleasant et cooperative this shift. Pt awakened several times throughout the noc et sat in dayroom X2 to "get sleepy again" before returning to bed. Pt declined medication to help her sleep. Ambulates halls ad nathalie with steady gait. Took meds whole without difficulty. VSWNL. Nurse assessment performed with no abnormalities noted at present time. Currently resting in bed with eyes open. Will continue to monitor per protocol.
[2019-04-20 07:48] VITALS: BP 101/61
--- NOTE | 2019-04-20 09:53 | NUR ---
ASSUMED CARE AT 0700 THIS MORNING. PT. JUST GETTING OUT OF BED AND UP ON THE UNIT. SHE TOOK HER MORNING MEDICATIONS WITHOUT PROBLEMS. HER LISINOPRIL WAS HELD DUE TO B/P <110. ABOUT 0945 SHE WAS ROAMING THE SAENZ TELLING THIS NURSE HOW SHE "FEELS SICK" AND NEEDS HELP. SHE WAS ESCORTED TO THE DINING ROOM AND SAT IN A CHAIR. HEART RRR, LUNGS CTA, DENIES PAIN. SHE STATED SHE THOUGHT SHE MAY THROW UP. GOT HER AN ZOFRAN BROUGHT TO PT. BUT SHE REFUSED TO TAKE IT ONCE BROUGHT TO HER. SHE WAS TAKEN TO HER ROOM AND ALLOWED TO LAY DOWN IN HER BED. MORNING MEETING WAS FINISHED.
[2019-04-20 11:11] VITALS: BP 101/69
[2019-04-20 19:27] VITALS: BP 137/92
--- NOTE | 2019-04-21 00:07 | NUR ---
Care assumed of patient at 1915: Patient pacing from her room to dayroom several times at start of shift. Patient calm, pleasant and cooperative. Patient presents with flat affect, depressed mood. Patient alert and oriented to person only at time of assessment. Patient confused and forgetful. Patient having difficulty following one step directions at times. However, patient did understand and follow through with getting a cup of water to take her medications. Took medication whole without difficulty. Ate 100% HS snack. Denies pain or discomfort. Denies SI/HI/AH/VH. No s/s of delusional or paranoia behaviors observed. Patient had difficulty falling to sleep this evening but once she was able to fall asleep, she has been resting quietly. Patient did require max assist x1 for ADL hygiene assist. Patient had difficulty understanding the process of brushing her teeth and item recognition.
[2019-04-21 09:05] VITALS: BP 119/58
[2019-04-21 19:25] VITALS: BP 138/70
--- NOTE | 2019-04-21 23:12 | NUR ---
Care assumed of patient at 1915: Patient wandering about the halls at start of shift. Wandering from dayroom back to her room several times. Patient alert and oriented to person only. Confused and forgetful. Presents with flat affect, depressed mood at times. Patient appeared more calm and interactive this evening. Patient conversing with nurses much more this evening. Disorganized thoughts expressed but was not isolative. Patient did laugh and smile a couple times with staff. Patient ate 100% HS snack. Took HS medication whole without difficulty. Denies anxiety/depression/SI/HI/AH/VH. No delusional or paranoia behaviors observed. Patient did express that this is a very nice building and has enjoyed the hospitality. Patient has been up twice since retiring to bed, restless, making her bed, coming to the dayroom. Once re-oriented to the time, she does go back to bed with falls asleep without difficulty. Patient has not been tearful or irritable this evening.
[2019-04-22 08:10] VITALS: BP 100/56
--- NOTE | 2019-04-22 08:10 | NUR ---
PT UP THIS AM FOR BREAKFAST. PT SEEMS TIRED TODAY, EASILY AWAKENS WITH VERBAL STIMULI. PT DENIES ANY PAIN. PT IS CALM AND COOROPERATIVE. PT NOT WEARING GLASSES THIS AM.
[2019-04-22 08:40] VITALS: BP 109/56
--- NOTE | 2019-04-22 20:56 | NUR ---
Care assumed of patient at 1915: Patient wandering about the halls at start of shift. Patient invited to group with nurse. Patient had difficulty focusing and sitting still and would get up and wander the halls, then come back and sit down. Patient alert and oriented to person. Patient confused and forgetful. 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 Patient presents with flat affect, appears drowsy and depressed. Patient did report that she felt tired and was frustrated that she could not sleep. Patient oriented to time being 7:15pm and she felt better that she was still awake. Patient denies SI/HI/AH/VH. Denies feeling depressed but appears as though she is. Patient has not asked about going home or being discharged thus far this shift. Patient ate 100% snack. Took HS medication whole without difficulty. Patient assisted with PM hygiene cares. Patient then retired to bed.
[2019-04-23 08:21] VITALS: BP 142/62
--- NOTE | 2019-04-23 09:10 | NUR ---
PT UP WALKING AROUND AFTER BREAKFAST. PT DENIES ANY PAIN. PT HAS STEADY GAIT WITH KYPHOSIS. PT COMMENTS ON HER SHIRT THAT HAS SOME STAINS ON IT AND IT IS A SHAME DUE TO BEING A PRETTY SHIRT. PT DENIES ANY GOAL TODAY. PT STATED SHE HAD A BM TODAY.
[2019-04-23 19:17] VITALS: BP 109/75
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
[2019-04-24 07:25] VITALS: BP 132/54
--- NOTE | 2019-04-24 10:41 | NUR ---
AFFECT CONSTRICTED-LITTLE INTERACTION WITH PEER GROUP.WILL COME OUT FOR MEALS AND GROUPS WITH PROMPTING/QUEING FROM NURSING STAFF. RESPONDS MINIMALLY TO QUESTIONS ASKED DURING AM ASSESSMENT WITH THIS RN. DENIES COMPLAINTS OF PAIN/DISCOMFORT-GAIT STEADY WITHOUT ASSISTIVE DEVICES. IS NOTED TO BE STANDING IN HALLWAY FOR 10-15 MINUTE PERIODS OF TIME
--- NOTE | 2019-04-24 11:14 | NUR ---
ARISTEO received vm from pt's brother Don that he will be coming today to visit pt and bring her clothing for her court hearing. ARISTEO spoke with pt who said she would like to go to court. ARISTEO contacted pt's civil attorney Jose Batres at [phone] to ask when he would like pt at the court hearing. No answer. ARISTEO lft message. ARISTEO team will continue to follow pt during her stay on this unit.
[2019-04-24 20:10] VITALS: BP 130/57
--- NOTE | 2019-04-25 03:45 | NUR ---
PATIENT AWOKE AND WALKED OUT TO DINING ROOM. SHE REQUESTED A BLANKET AND SAID SHE WAS COLD. PATIENT WENT BACK TO HER ROOM. I BROUGHT HER ANOTHER BLANKET AND COVERED HER WITH 3-4 BLANKETS. PT THEN STATES HER HEAD IS ACHING FROM THE COLD. I ASKED IF SHE WOULD LIKE ME TO GET HER SOME TYLENOL FOR HER HEADACHE. SHE SAID, "WELL YES, I NEED SOMETHING." I TOLD HER I WOULD BE RIGHT BACK. I RETURNED WITH TYLENOL 650MG AND SHE REFUSED TO TAKE IT. SHE DENIED SHE HAD A HEADACHE AND STATES, "YOU DON'T TAKE PILLS FOR BEING COLD." THE FAN ON THE HEATER IS AUTOMATIC AND IS GOING. IT DOES BLOW LUKEWARM AIR. I ADJUSTED HER THERMOSTAT AND INCREASED THE HEAT. PATIENT REFUSES TO STAY IN BED UNDER THE COVERS. SHE IS UP AND PACING THE HALLS AND WALKING BACK AND FORTH FROM ROOM TO DINING ROOM. WILL CONTINUE TO MONITOR.
--- NOTE | 2019-04-25 04:50 | NUR ---
ASSUMED CARE ON 04/24/19 @ 19:15, IN ROOM, AND AMBULATED INDEPENDENTLY FROM ROOM TO DAY ROOM. COOPERATED WITH ASSESSMENT, HRRR, LUNGS CTA ABD N X 4 Q. REPORTS NO BM TODAY, HOWEVER HAD A BM YESTERDAY. WHEN AWAKENS AT NOC IS CONFUSED AND FORGETS THAT SHE HAS A BATHROOM IN OWN BEDROOM. TAKEN TO TOILET AND RETURNED TO BED. WANTS TO LAY ON TOP OF HER BLANKETS, WHEN ASKED TO GET UNDER HER BLANKETS, BECOMES AGITATED. COVERED UP AND TEMPERATURE IN ROOM INCREASED BY 2 DEGREES TO 82F. BED IN LOW POSITION. WILL CONTINUE TO MONITOR Q 12 MINTUES FOR PATIENT SAFETY.
--- NOTE | 2019-04-25 06:26 | NUR ---
REQUESTED TYLENOL FOR H.A. OF 07/06, PROVIDED @ 0602. QUETIAPINE 50 PROVIDED FOR AGITATION AT 0602. ASSESSED FOR WEAKNESS IN THE ARMS, FOUND BILATERAL EVEN STRENGTH. EQUAL STRENGTH IN BOTH LOWER EXTREMITIES. PATIENT AMBULATED TO THE DAY ROOM SHE WANTED TO LIGHTS ON AND HER ROOM MATE WAS ASLEEP.
--- NOTE | 2019-04-25 06:31 | NUR ---
SLEPT 6 HOURS
[2019-04-25 06:32] VITALS: BP 126/68
[2019-04-25 09:06] VITALS: BP 105/52
[2019-04-25 12:49] VITALS: BP 105/52
--- NOTE | 2019-04-25 13:00 | NUR ---
ASSUMED CARE AT 0700 THIS MORNING. PT. UP IN HER ROOM. SHE CONTINUES TO PRESENT VERY DEPRESSED. SHE IS WALKING FROM HER ROM TO THE DINING ROOM AND BACK TO HER ROOM AND REPEAT. SHE WAS VERY SLEEPY DURING BREAKFAST AND LUNCH. STAFF FED HER. SHE AT PRETTY WELL WITH THE HELP OF STAFF. SHE WAS GIVEN A QUIETIPINE PRN THIS MORNING ON THE PILE TRIMMER, PROBABLY HELPING HER FEEL TIRED ALONG WITH NOT SLEEPING WELL LAST NIGHT. SHE APPEARS SAD, DEPRESSED.
[2019-04-25 19:15] VITALS: BP 131/52
--- NOTE | 2019-04-26 04:13 | NUR ---
ASSUMED CARE OF PATIENT ON 04/25/19 AT APPROXIMATELY 1915, SHE WAS IN BED THROUGHOUT THE EVENING REPORTING 'IM SO TIRED.' SHE DOES APPEAR WITH A TIRE AFFECT, PER REPORT PATIENT DID RECEIVE PRN SEROQUEL DUE TO AGITATION/AGGRESSION. SHE COME OUT FOR SNACK ONCE BUT QUICKLY RETREATED TO HER ROOM. SHE APPEARS INCREASINGLY CONFUSED AND ONLY ALERTED TO SELF. SHE DID NOT REPORT SI HI THOUGHTS. SHE DID NOT REPORT MEDICAL CONCERNS WITH NO S/S OF DISTRESS. NURSING WILL MAINTAIN ALL PRECAUTIONS TO ENSURE SAFETY AT ALL TIMES.
[2019-04-26 07:30] VITALS: BP 108/63
--- NOTE | 2019-04-26 10:10 | NUR ---
ASSUMED CARE AT 0700 THIS MORNING. PT. UP, DRESSED AND IN THE DINING ROOM. BS WAS TOO LOW FOR INSULIN AT BREAKFAST. HE ATE AND RETURNED TO HIS ROOM. THIS [employer] CLINICAL PROGRAMMER WENT IN TO GIVE HIM HIS MORNING MEDICATIONS. HE TOOK THOSE AND THEN ATTENDED MORNING GROUP. HE HAS A FLAT AFFECT, AND DEPRESSED LOOKING FACIAL EXPRESSIONS. HE IS ALERT AND ORIENTED TIMES 4. HE IS PLEASANT AND COOPERATIVE WITH STAFF. HE REMAINS ISOLATIVE WHILE ON THE UNIT OR IN HIS ROOM.
--- NOTE | 2019-04-26 11:11 | NUR ---
Nutrition: pt continues on H unit with excellent intake of meals, 75-100% on regular diet. Weights remains stable in the 160s x several weeks. Reviewed food preferences with pt and wishes to D/C the cottage cheese at lunch, continue other previously entered food preferences. Pt eating protein foods well. 04/[address] date on 05/01 for guardianship. Low risk.
[2019-04-26 13:16] VITALS: BP 102/69
--- NOTE | 2019-04-26 13:33 | NUR ---
ASSUMED CARE AT 0700 THIS MORNING. PT. UP, DRESSED AND ON THE UNIT. PT. AMBULATING BETWEEN HER ROOM AND THE DINING ROOM. IN THE DINING ROOM FOR MEALS, GROUPS. TOOK HER MEDICATIONS WITHOUT DIFFICULTY. CONTINUES TO PRESENT WITH A FLAT, DEPRESSED AFFECT. SHE DOES STATE SHE FEELS "A BIT BETTER TODAY" THOUGH. FEEDING HERSELF TODAY. SHE WAS SLEEPING DURING BREAKFAST. AWAKE THE REST OF THE DAY. NO COMPLAINTS NOTED.
[2019-04-26 19:42] VITALS: BP 157/70
[2019-04-26 21:00] VITALS: BP 157/70
--- NOTE | 2019-04-27 04:03 | NUR ---
ASSESSMENT: PT REMAIN ALERT AND ORIENT TIMES THREE, SLEPT ALL NIGHT. NO COMPLAINTS. VSS, AFEBRILE. SLOW PROGRESS TOWARDS DC GOALS, WILL CONTINUE TO MONITOR.
[2019-04-27 05:38] VITALS: BP 157/70
[2019-04-27 07:55] VITALS: BP 113/64
--- NOTE | 2019-04-27 12:14 | NUR ---
Date of Admission: 03/01/19 Date of Activity Therapy Assessment: 03/04/19 Activity Goal: Manage anxiety symptoms Initial Goal: 1 Group activity/day Weekly progress towards goal: Did not achieve goals Group participation level: Needs some assistance Behaviors observed: Patient continues to refuse to sit with peers in groups, rather sits in the same chair in the dining room each day. She observes rather than participates. Patient does display intermitent increase in confusion and depression but accepts conversation from staff during these times. Plan: No change towards goal
[2019-04-27 12:15] VITALS: BP 108/63
--- NOTE | 2019-04-27 13:15 | NUR ---
PATIENT WAS IN BED SLEEPING WHEN CARE ASSUMED. WOKE-UP FOR BREAKFAST, APPETITIE FAIR. PATIENT AMBULATE WITH SLOW STEADY GAIT. PATIENT IS ALERT, FORGETFUL, CONFUSED. AFFECT IS FLAT, DEPRESSED. MOOD IS CALM, POOR EYE CONTACT. PATIENT IS DEUSIONAL, THINKS SHE IS IN SCHOOL. PATIENT TOOK ALL MORNING MEDICATION WHOLE [id number] DIFFICULTY. PATIENT DENIES SUICIDAL/HOMICIDAL IDEATION. SHE DENIES HAVING PHYSICAL PAIN, NO SIGN OF ACUTE DISTRESS NOTED AT THIS TIME, WILL MONITOR FOR SAFETY.
--- NOTE | 2019-04-27 18:13 | NUR ---
ARISTEO contacted [employer] and scheduled transportation for pt to attend court on 05/01 with a staff member. She was told that pt will be picked out at 830. [address] finishes the staff member will call the number on the business card she is given and then transportation will pick her up. The trip number is [phone]. SW team will continue to follow pt during her stay on this unit.
[2019-04-27 19:30] VITALS: BP 130/60
--- NOTE | 2019-04-28 00:41 | NUR ---
ASSUMED CARE OF PATIENT ON 04/27/19 AT 1915, SHE IS ALERT AND ORIENTED X2-3. SHE HAS MOMENTS OF CLARITY WHERE SHE ANSWERS QUESTIONS APPROPRIATELY, BUT THEN WILL ALTERNATE THE SUBJECT TO AN ERRONEOUS STATEMENT. SHE APPEARS AT TIMES WITH A BLANK AFFECT, BUT HAVING SIMPLE CONVERSATIONS WITH THE PATIENT SHE WILL APPEAR BRIGHT. SHE ASKS SEVERAL TIMES TO GO HOME ET THINGS SHE IS LOOKING FORWARD TO DOING. SHE DENIES SI HI, DENIES ANXIETY, REPORTS DEPRESSION. APPEARS TO BE SITUATIONAL IN NATURE R/T HOSPITALIZATION. SHE DENIES MEDICAL CONCERNS WITH NO S/S OF DISTRESS. NURSING WILL MAINTAIN ALL PRECAUTIONS TO ENSURE SAFETY AT ALL TIMES.
[2019-04-28 08:00] VITALS: BP 150/61
[2019-04-28 19:44] VITALS: BP 141/61
[2019-04-28 22:00] VITALS: BP 141/61
--- NOTE | 2019-04-29 02:54 | NUR ---
1840 RESUMMED CARE FROM DAY SHIFT, PATIENT WAS IN DAY ROOM AT THE BEGINNING OF SHIFT. PATIENT THEN WENT TO HER ROOM TO GO TO BED, SHE DID TAKE HER MEDICATION WITHOUT INCIDENCE. PATIENT COOPERATIVE, AFFECT SAD NO BEHAVIOR PROBLEMS. WILL CONTINUE TO MONITOR PATIENT FOR BEHAVIORS AND SAFETY.
[2019-04-29 09:48] VITALS: BP 118/58
--- NOTE | 2019-04-29 18:47 | NUR ---
Assumed patient care at 0715. Vital signs have been stable. She has been pleasantly confused. Patient has been calm, cooperative and compliant with medications. She had a female visitor this morning. Patient has came to the nurses station several times to ask a question then quickly forgets what she was going to ask. No self harm threats and/or behaviors. No suicidal and/or homicidal threats. Patient ambulates without assistance; gait is steady. No new medication orders or Consults. POC followed. Will report to on-coming nurse.
[2019-04-29 19:35] VITALS: BP 122/64
--- NOTE | 2019-04-30 04:12 | NUR ---
Assumed care of pt @ 1900. Pt calm et cooperative this shift. Pt took medications whole without difficulty. VSWNL. Health assessment with no abnormalities at present time. Ambulates halls ad nathalie with steady gait. Currently resting in bed with eyes closed. Will continue to monitor per protocol.
[2019-04-30 09:25] VITALS: BP 122/54
--- NOTE | 2019-04-30 15:48 | NUR ---
PT A&OX3, VSS, DENIES SI/HI. PATIENT STATES SHE FEELS HER DAY IS PLEASANT. PATIENT HAD NAP TODAY AND STAYED IN DAYROOM WITH OTHER PATIENTS. PATIENT IS COOPERATIVE, STAYS TO HERSELF IN DAYROOM AND FLAT AFFECT. PATIENT IS TOLERATING MEALS. WILL CONTINUE TO MONITOR.
[2019-04-30 19:54] VITALS: BP 119/62
--- NOTE | 2019-05-01 04:22 | NUR ---
Assumed care of pt @ 1900. Pt calm et cooperative this shift. Took medications whole without difficulty. Ambulates the unit ad nathalie with steady gait. VSWNL. No abnormalities found on health assessment. Currently resting in bed with eyes closed. Will continue to monitor per protocol.
[2019-05-01 07:51] VITALS: BP 121/61
--- NOTE | 2019-05-01 15:55 | NUR ---
TO COURT ACCOMPNIED BY NURSING STAFF AT APPROX 0830-DID TAKE AM MEDS AND EAT BREAKFAST PRIOR TO DEPARTURE-RETURNED TO UNIT AT APPROX 1300 AND STATES "THINGS WENT OK I GUESS" NO NOTED OR REPORTED ACUTE ANXIETY. DENIES S/O PAIN/DISCOMFORT USING ROLLER WALKER FOR AMBULATION
[2019-05-01 20:19] VITALS: BP 123/52
--- NOTE | 2019-05-02 01:11 | NUR ---
ASSUMED CARE ON 05/01/19 @ 19:15, AMBULATES FROM DAY ROOM TO BEDROOM WITH A STEADY GAIT. COOPERATED WITH ASSESSMENT, TOOK MEDS WHOLE WITH WATER. MAKES BED AND LIES ON TOP OF THE MADE BED, COMPLAINING OF THE COLD. WHEN ATTEMPTING TO GET PATIENT TO LIE UNDER HER COVERS, SHE BECOMES AGITATED, REFUSING ALSO TO DRESS IN NIGHT CLOTHES. WILL CONTINUE TO MONITOR Q 12 MINUTES FOR PATIENT SAFETY.
[2019-05-02 02:52] VITALS: BP 123/52
--- NOTE | 2019-05-02 05:58 | NUR ---
SLEPT 10 HOURS
[2019-05-02 09:40] VITALS: BP 109/51
--- NOTE | 2019-05-02 14:28 | NUR ---
SAD FLAT AFFECT OBSERVED THROUGHOUT SHIFT. DURING ;1 INTERACTION WITH THIS NURSE STATES "JUST NOT FEELING WELL" "I'M GOING TO TAKE A FEW DAYS OFF-MAYBE A WEEK"A FEW MINUTES LATER APPROACHES NURSING STATION AND REPEATS THE SAME STATEMENT" OFFERED AND ACCEPTED TYLENOL 650MG PO PRN- FOR ABOVE NOTED GENERALIZED COMPLAINTS. WHEN ASKED IF SHE THOUGHT WHAT SHE WAS FEELING WAS MORE MENTAL OR DEPRESSION VS PHYSICAL STATES "NO THIS ISN'T DEPRESSION" GAIT IS SLOW,SLIGHTLY SHUFFLING BUT STEADY. CARRIES BELONGINGS WITH HER WHILE WALKING IN HALLWAYS. DID ASK 2-[address] THE EXIT BUT IS EASILY REDIRECTED
[2019-05-02 19:41] VITALS: BP 138/57
--- NOTE | 2019-05-03 02:55 | NUR ---
ASSUMED CARE OF PATIENT ON 05/02/19 AT APPROXIMATELY 1915. PATIENT APPEARS WITH A PERPLEXED AFFECT, WONDERS THE HALLS AND GAZES AT OTHER PATIENTS. SHE FREELY DISCUSSES TOPICS AND SHARES DETAILS OF HER LIFE. SHE DENIES SI HI. SHE DOES WAKE UP FREQUENTLY IN THE EVENING CONFUSED. SHE NEEDS SEVERAL REMINDERS OF WHAT TIME IT IS, BUT AGREES AND GOES INTO THER ROOM. SHE DENIED MEDICAL CONCERNS, DENIED PAIN, DOES NOT APPEAR TO BE IN DISTRESS. NURSING WILL MAINTAIN ALL PRECAUTIONS TO ENSURE SAFETY AT ALL TIMES.
[2019-05-03 09:05] VITALS: BP 141/62
--- NOTE | 2019-05-03 11:55 | NUR ---
Follow up: continues to eat 100% of meals. No new wt to assess. Remains low nutrition risk
[2019-05-03 19:41] VITALS: BP 113/53
--- NOTE | 2019-05-03 20:22 | NUR ---
CALM AND COOPERATIVE-NEEDS PROMPTING AND QUEING TO LEAVE ROOM BUT WILL COME OUT TO DAYRROM FOR GROUPS WITH PROMPTS. BLUNTED AFFECT-MINIMAL INTERACTION WITH PEER GROUP. APPETITE FAIR. SLOW SHUFFLING GAIT-MANJU C/O PAIN. ORIENTED TO PERSON ONLY NO TO DAY OR PLACE.
--- NOTE | 2019-05-04 05:49 | NUR ---
ASSUMED CARE ON 05/03/19 @ 19:20, IN DAY ROOM, SITTING ALONE, THEN AMBULATING TO BEDROOM. UP AD KYE. COOPERATED WITH ASSESSMENT, HRRR, LUNGS CTA ALL AGUIRRE, ABD SOUNDS N X 4 Q. REPORTS BM ON 05/02 OF NORMAL SIZE AND CONSISTENCY. PROVIDED PRN TRAZADONE 150MG @ HS. IN BED, ALTHOUGH AWAKE. ORIENTED TO SELF ONLY. TAKES MEDS WHOLE WITH WATER. DENIES DEPRESSION OR ANXIETY. DENIES SI AND HI. BED IN LOW POSITION, WILL CONTINUE TO MONITOR Q 12 MINUTES FOR PATIENT SAFETY.
--- NOTE | 2019-05-04 08:31 | NUR ---
Date of Admission: 03/01/19 Date of Activity Therapy Assessment: 03/04/19 Activity Goal: Manage anxiety symptoms Initial Goal: 1 Group activity/day Weekly progress towards goal: Did not achieve goals Group participation level: Minimal Behaviors observed: Patient continues to refuse most groups, often stating she is, "very sick." When in attendance patient declines sitting near peers and is often seen sitting to the side observing only. Plan: No change towards goal
[2019-05-04 09:23] VITALS: BP 142/61
[2019-05-04 11:06] VITALS: BP 142/67
--- NOTE | 2019-05-04 13:13 | NUR ---
0715 RESUMMED CARE FROM OVERNIGHT SHIFT, PATIENT UP IN DAY ROOM QUIET, CALM. PATIENT ATE BREAKFAST AND TOOK MEDICATION WITHOUT INCIDENCE. PATIENT PARTICIPATED IN GROUPS OCCASSIONLY WILL TALK WITH OTHER PATIENTS. WILL CONTINUE TO MONITOR PATIENT FOR BEHAVIORS AND SAFETY.
[2019-05-04 19:39] VITALS: BP 132/60
--- NOTE | 2019-05-05 02:17 | NUR ---
Care assumed of patient at 1915: Patient laying in bed at start of shift. Easily aroused. Patient alert and oriented to person only. Patient believes that we are at a school. Patient started laughing when re-oriented and stated "I just get so confused". Patient primarily flat with depressed appearance. Patient denies pain or discomfort. Denies SI/HI/AH/VH. No s/s of delusional or paranoia behaviors. Patient took HS medication whole without difficulty. Declined HS snack. Reported she was tired and wanted to get to sleep. Patient able to fall asleep without difficulty. Patient up and about in the halls at 0200. Patient re-oriented to current time. States that she "just doesn't feel well" and wants to go back to bed. Patient allowed nurse to walk her back to her room, tuck her in bed and she is quietly resting again.
[2019-05-05 08:00] VITALS: BP 100/58
--- NOTE | 2019-05-05 09:00 | NUR ---
Assumed care of patient this am. Patient awake, ambulating in the harry. Patient appears confused and asked where she was supposed to report for work. Patients affect somewhat flat. Patient calm and cooperative. Patient takes medications whole with thin fluids. Patients assessment shows clear breath sounds, active bowel sounds, and s1 s2 heard with auscultation. Patient denies hi/si. Patient states that she is having some pain in her shoulder. Will continue to monitor.
[2019-05-05 09:50] VITALS: BP 100/58
[2019-05-05 11:50] VITALS: BP 126/64
--- NOTE | 2019-05-05 13:39 | NUR ---
ARISTEO sent an email to Makeda CARMONA asking for advisement on the next steps for pt as she has not received a letter from the PA office or a visit from her case management team. SW team will continue to follow pt during her stay on this unit.
[2019-05-05 14:19] LABS: ABSOLUTE NEUTROPHILS 5.1 thou/uL (1.4-8.2); BASOPHILS 0.7 % (0.0-2.0); EOSINOPHILS 0.9 % (0.0-3.0); HEMATOCRIT 37.7 % (37.0-47.0); HEMOGLOBIN 12.3 gm/dL (12.0-15.0); LYMPHOCYTES 20.9 % (24.0-44.0); MCHC 32.5 g/dL (28.0-37.0); MCV 92.2 fL (80.0-100.0); MONOCYTES 7.4 % (1.0-8.0); PLATELET COUNT 308 thou/uL (150-400); POLYS 70.1 % (36.0-66.0); RBC 4.09 mil/uL (4.20-5.00); RDW 13.4 % (10.5-14.5); WBC 7.2 thou/uL (4.0-11.0)
[2019-05-05 14:29] LABS: CALCIUM 9.1 mg/dL (8.5-10.1); CREATININE 0.9 mg/dL (0.6-1.0); POTASSIUM 4.2 mmol/L (3.5-5.1)
--- NOTE | 2019-05-05 18:42 | NUR ---
HAIR WASHED. PT. COOPERATIVE.
[2019-05-05 19:30] VITALS: BP 126/64
--- NOTE | 2019-05-06 00:11 | NUR ---
ASSUMED CARE ON 05/05/19 @ 19:15, IN DAY ROOM SITTING AT A TABLE FACING THE TV AND INTERACTING WITH PEERS. COOPERATED WITH ASSESSMENT, HRRR, S1S2 NOTED, LUNG SOUNDS CTA BILATERALLY, ABD N X 4 Q, REPORTS BM YESTERDAY. DENIES WORRY AND SADNESS, DENIES AH, VH, SI, HI. TOOK HS MEDS WHOLE WITH WATER, RETIRED AND IS ASLEEP AT THIS WRITING. BED IN LOW POSITION, WILL CONTINUE TO MONITOR Q 12 MINUTES FOR PATIENT SAFETY.
--- NOTE | 2019-05-06 05:28 | NUR ---
SLEPT 9.8 HOURS
--- NOTE | 2019-05-06 05:29 | NUR ---
SLEPT 9.8 HOURS
[2019-05-06 09:12] VITALS: BP 141/68
[2019-05-06 11:11] VITALS: BP 141/68
--- NOTE | 2019-05-06 13:33 | NUR ---
PATIENT HAS BEEN UP AND OUT ON THE UNIT, AMBULATES WITH SLOW STEADY GAIT. PATIENT TOOK ALL MEDICATION WHOLE, ONE PILL AT A TIME, WITHOUT DIFFICULTY. PATIENT IS EATING MEALS, AND DRINKING FLUID FAIRLY WELL. PATIENT DENIES SUICIDAL/HOMICIDAL IDEATION. AFFECT IS FLAT, MOOD IS DEPRESSED. LUNGS CLEAR TO AUSCULTATION IN ALL LOBE. BS+X4, ABD SOFT, NON-TENDER TO TOUCH. PATIENT IS FORGETFUL, DISORGANIZES, CONFUSED, REQUIRES CONSTANT REDIRECTION. NO AGITATION OR AGGRESSIVE BEHAVIOR NOTED, WILL MONITOR FOR SAFETY.
[2019-05-06 20:54] VITALS: BP 131/51
--- NOTE | 2019-05-06 22:53 | NUR ---
ASSUMED CARE OF PATIENT AT 1915. PATIENT IS OBSERVED WONDERING THE HALLWAYS WITH A BLANK PERPLEXED AFFECT, SHE DOES BRIGHTEN AT TIMES WHEN CONDUCTING CONVERSATION WITH PATIENT ABOUT HER PAST AND HOBBIES. SHE IS PLEASANTLY CONFUSED, ALERT AND ORIENTED X1-2. SHE WAS ABLE TO RECALL THIS NURSES NAME WITHOUT PROMPTING OR VIEWING BADGE. SHE APPEARS GROOMED FAIRLY, PT DID ASK IF I COULD COMB HER HAIR, WHICH I AGREED TO. SHE DENIED SI HI DEPRESSION ET ANXIETY. SHE DID VOCALIZE SOME FRUSTRATION TO WHY SHE IS 'STUCK' ON THE UNIT. THIS NURSE EXPLAINED WHY, AND SHE BECAME EVEN MORE PERPLEXED BUT AGREEABLE. SHE DENIED MEDICAL CONCERNS EXCEPT STATING 'I WANT MY HAIR THICKER.' SHE DOES NOT APPEAR TO BE IN DISTRESS. NURSING WILL MAINTAIN ALL PRECAUTIONS TO ENSURE SAFETY AT ALL TIMES.
[2019-05-07 07:38] VITALS: BP 135/53
--- NOTE | 2019-05-07 18:07 | NUR ---
0715 ASSUMED CARE OF PATIENT. PATIENT AMBULATING IN SAENZ AT THIS TIME DENIES NEEDS AT THIS TIME. PATIENT IN DAYROOM SITTING AT TABLE AT 0815 EATING BREAKFAST. 0845 ASSESSMENT COMPLETED AT THIS TIME. LUNG SOUNDS CLEAR, BS NOTED X 4, NO C/O PAIN, DENIES SI/HI AND AUDIO/VISUAL HALLUCINATIONS. MEDS TAKEN WITHOUT DIFFICULTY WHOLE WITH H20.
[2019-05-07 19:56] VITALS: BP 135/59
--- NOTE | 2019-05-07 21:36 | NUR ---
ASSUMED CARE OF PATIENT AT 1915, PATIENT IS ALERT AND ORIENTED X1, STILL ABLE TO RECALL THIS NURSES NAME SPONTANEOUSLY. SHE APPEARS WITH BLUNT CONFUSED AND PERPLEXED AFFECT, REPEATEDLY ASKING WHAT OTHER PATIENTS ARE DOING ON THE UNIT. SHE IS PLEASANTLY CONFUSED, RESPONDS WELL TO REDIRECTION WHEN NEEDED. SHE DID MAKE SEVERAL STATEMENTS TO THE FACT THAT HER SISTER LIVES 'HERE' AND HELPS HER MAINTAIN HER GARDEN. PATIENT TAKES MEDICINE WHOLE, NO MEDICAL DISTRESS NOTED NOR OBSERVED. NURSING WILL MAINTAIN ALL PRECAUTIONS TO ENSURE SAFETY AT ALL TIMES.
--- NOTE | 2019-05-08 05:22 | NUR ---
PATIENT AWOKE ONCE AROUND 0200 AND WALKED OUT TO DINING ROOM AND WHEN ASKED SHE SAID SHE WAS LOOKING FOR THE BATHROOM. WALKED PATIENT BACK TO HER BATHROOM AND SHE USED IT AND THEN ASSISTED HER BACK TO BED. PATIENT HAS BEEN SLEEPING SINCE THEN. BED IN LOW POSITION. CONTINUING TO MONITOR PATIENT FOR SAFETY.
--- NOTE | 2019-05-08 06:26 | NUR ---
0620 PRN TYLENOL 650 mg. given for c/o generalized "aches and pains". Pt. took whole with thin liquids. No choking or coughing noted after swallowing.
--- NOTE | 2019-05-08 07:30 | NUR ---
Assumed care of patient this am. Patient calm and in good spirits. Patients affect is flat. Patient denies pain. Patient denies hi/si. Patient wanders around the unit looking for things to do. Patient ambulates without assistance. Patient takes medications whole. Patient is alert and oriented to person but confused about where she is at. Patients assessment shows clear breath sounds, active bowel sounds, and s1 s2 heard with auscultation.
[2019-05-08 08:00] VITALS: BP 115/54
[2019-05-08 09:06] VITALS: BP 115/54
--- NOTE | 2019-05-08 12:31 | NUR ---
ARISTEO contacted pt's Augustus Pringle at [phone]. She asked SW to send referrals to [facility], [facility], and [facility]. ARISTEO also talked with her about pt's Medicaid jamar. She asked SW to send her info to [email or web address]. She said she will visit with pt either tomorrow or Wed. ARISTEO provided update to [email or web address]. SW team will continue to follow pt during her stay on this unit.
--- NOTE | 2019-05-08 13:37 | NUR ---
ARISTEO faxed referrals to [place], [facility], and [facility]. ARISTEO team will continue to follow pt during her stay on this unit.
[2019-05-08 20:00] VITALS: BP 145/68
--- NOTE | 2019-05-08 23:28 | NUR ---
Care assumed of patient at 1915: Patient resting in bed at start of shift. Patient easily arousable. Patient alert and oriented to person only. Pleasantly confused. Flat affect noted. Denies SI/HI/AH/VH. No s/s of delusional or paranoia behaviors. Denies anxiety or depression. Patient declined HS snack. Took HS medication whole. Had some difficulty comprehending putting a pill in her mouth then taking a drink of water. Believed to be due to the fact she had just been sleeping. Denies pain or discomfort. Patient calm and cooperative with assessment. Reported that she was tired and was ready for bed, despite already being in bed. Easily re-directable. Patient was able to lay back down after HS medication and has been resting quietly since.
[2019-05-09 07:35] VITALS: BP 137/96
--- NOTE | 2019-05-09 10:37 | NUR ---
ARISTEO received a call from [place] with [facility] who said pt clears medically, but needed info about pt's P.A. guardian. She asked ARISTEO to fax her court letters to [phone]. ARISTEO faxed docs. ARISTEO team will continue to follow pt during her stay on this unit.
[2019-05-09 20:00] VITALS: BP 124/56
--- NOTE | 2019-05-09 20:16 | NUR ---
HAS BEEN VISIBLE IN DAYROOM [facility] OF [facility]-WILL OCCASSIONALLY GO TO ROOM AND REST FOR BRIEF INTERVALS OR GO THROUGH HER BELONGINS AT ONE POINT ASKING FOR A LARGE BAG TO PACK UP HER BELONGINGS BUT WAS EASILY REDIRECTED TO WAIT UNTIL DC TO DO SO. ORIENTED TO PERSON-KNOWS INHOSPITAL BUT UNSURE OF NAME OF HOSPITAL-UNSURE OF DATE. GAIT IS STEADY WITHOUT ASSISTIVE DEVICES. DENIES COMPLAINTS OF PAIN/DISCOMFORT. DENIES SI/SH/HI OR ACUTE ANXIETY. BLUNTED AFFECT DELAYED VERBAL RESPONSES. APPETITE FAIR. COMPLIENT WITH SCHEDULED MEDICATIONS
--- NOTE | 2019-05-10 01:30 | NUR ---
ASSUMED CARE ON 05/09/19 @ 19:15, AMBULATING AD KYE FROM DAY ROOM TO BEDROOM. COOPERATED WITH ASSESSMENT, HRRR, LUNGS CTA, ABD N X 4 Q. REPORTS HAD A BM YESTERDAY, BUT NOT TODAY. ORIENTED TO PERSON, . CANNOT NAME HOSPITAL OR TODAYS DATE. UNSURE WHO THE PRESIDENT IS. DENIES WORRY AND ANXIETY. DENIES A/H AND V/H. GIVEN TYLENOL 650 @ 22:20 FOR GENERAL PAIN OF 5/10, FOLLOW UP NOTED TO BE ASLEEP. BED IN LOW POSITION, WILL CONTINUE TO MONITOR Q 12 MINUTES FOR PATIENT SAFETY.
[2019-05-10 03:00] VITALS: BP 124/56
--- NOTE | 2019-05-10 06:04 | NUR ---
slept 8.8 hours
--- NOTE | 2019-05-10 07:30 | NUR ---
Assumed care of patient this am. Patients affect is blunted. Patient denies pain. Patient denies hi/si. Patient takes medications whole with fluids. Patient ambulates without assistance. Patients assessment shows clear breath sounds, active bowel sounds, and s1 s2 heard with auscultation.
[2019-05-10 08:00] VITALS: BP 114/56
--- NOTE | 2019-05-10 08:33 | NUR ---
ARISTEO received a vm from Koki Pringle asking for the Medicaid jamar to be emailed to her at [email or web address]. ARISTEO emailed [employer] requesting that they email the application to Koki. ARISTEO left a msg on Fabiola with Sana urbina with an update. ARISTEO team will continue to follow pt during his stay on this unit.
[2019-05-10 09:07] VITALS: BP 114/56
--- NOTE | 2019-05-10 10:47 | NUR ---
Nutrition followup: continues to eat >75% of meals. Wts average 155-163 lb over course of admission. Likely discharge Wednesday. Low nutrition risk
[2019-05-10 19:23] VITALS: BP 114/61
--- NOTE | 2019-05-11 02:52 | NUR ---
1452 RESUMMED CARE FROM DAY SHIFT, PATIENT IN DAY ROOM QUIET WATCHING TV. PATIENT HAS SOME CONFUSION CALM COOPERATIVE, PATIENT TOOK MEDICATION WITHOUT INCIDENCE. PATIENT DENIES SI/HI WILL CONTINUE TO MONITOR PATIENT FOR BEHAVIORS AND SAFETY.
--- NOTE | 2019-05-11 07:30 | NUR ---
Assumed care of patient this am. Patient in good spirits. Patient denies pain. Patients affect blunted. Patient denies hi/si. Patient ambulates with out assistance. Patient takes medications whole. Patients assessment shows clear breath sounds, active bowel sounds, and s1 s2 heard with auscultation. Patients memory is very poor. We will continue to monitor.
[2019-05-11 08:00] VITALS: BP 120/60
[2019-05-11 13:16] VITALS: BP 120/60
[2019-05-11 19:30] VITALS: BP 150/65
--- NOTE | 2019-05-12 00:17 | NUR ---
ASSUMED CARE ON 05/11/19, IN HER ROOM, FUSSING WITH HER THINGS, AND THEN LAYING DOWN IN BED ON TOP OF THE COVERS. FLAT AFFECT NOTED, A&OX2, ORIENTED TO PERSON AND ONLY, UNABLE TO STATE CURRENT DATE. FORGETFUL-NESS NOTED COOPERATED WITH ASSESSMENT, S1S2 NOTED, LUNG SOUNDS CTA IN ALL AGUIRRE. ABDOMINAL SOUNDS AUSCULTATED. REPORTS HAD A BM YESTERDAY. TAKES PO MEDS WHOLE ONE AT A TIME WITH THIN WATER. REPORTS 2/10 TWINGE OF PAIN IN HER RIGHT SHOULDER, TYLENOL 650 PROVIDED @ 21:45 FOR SHOULDER PAIN. ON FOLLOW UP ASSESSMENT, NOTED TO BE ASLEEP. BED IN LOW POSITION,
[2019-05-12 02:00] VITALS: BP 150/65
--- NOTE | 2019-05-12 06:01 | NUR ---
SLEPT 11 HOURS
[2019-05-12 08:42] VITALS: BP 120/60
[2019-05-12 10:32] VITALS: BP 120/60; BP 126/57
[2019-05-12] MEDS ORDERED: EXTRA STRENGTH85 GM TOP (10:38)
[2019-05-12] MEDS ORDERED: TYLENOL325 MG PO (10:38)
[2019-05-12] MEDS ORDERED: LEXAPRO 10 MG T10 MG PO (10:39)
[2019-05-12] MEDS ORDERED: TRAZODONE 150150 M1 PO (10:39)
[2019-05-12] MEDS ORDERED: SEROQUEL 25 MG25 M1 PO (10:39)
[2019-05-12] MEDS ORDERED: RISPERDAL 1 MG T1 MG PO ×2 (10:40)
[2019-05-12] MEDS ORDERED: NAMENDA 5 MG TAB5 M1 PO (10:40)
[2019-05-12] MEDS ORDERED: CEPACOL SORE T1 EAC7 PO (10:40)
[2019-05-12] MEDS ORDERED: MAG-AL PLUS SUS30 ML PO (10:41)
[2019-05-12] MEDS ORDERED: MILK OF MA2400 MG/11 PO (10:41)
[2019-05-12] MEDS ORDERED: PEPCID20 MG PO (10:41)
[2019-05-12] MEDS ORDERED: ONDANSETRON HCL4 M2 PO (10:41)
[2019-05-12] MEDS ORDERED: B-12500 MCG PO (10:42)
[2019-05-12] MEDS ORDERED: FOLIC ACID1 MG PO (10:42)
[2019-05-12] MEDS ORDERED: ASPIR 8181 MG PO (10:44)
--- NOTE | 2019-05-12 10:58 | NUR ---
SW D/C note SW completed a [id number] form for pt to be faxed with her d/c documents. No other needs for SW team to address at this time.
--- NOTE | 2019-05-12 11:35 | NUR ---
1130 RESUMMED CARE FROM OVERNIGHT SHIFT, PATIENT IN DAY ROOM WAITING FOR BREAKFAST. PATIENT TOOK MEDICATION WITHOUT INCIDENCE, SHE IS EXCITED THAT SHE IS LEAVING TODAY. PATIENT IS DISCHARGING TO [facility]/ [facility], PATIENT COOPERATIVE, CALM NO SI/HI OR ABURTO. PATIENT LEFT AT 1135 TO NEW PLACEMENT WITH BELONGINGS AND AFTERCARE INSTRUCTIONS. REPORT CALLED TO STAFF AT THE [facility] AT 1130.
== END 2019-05-12 11:35 | DRG 884 ==
LOC: ER 13:28 → SBH 15:23 → EROBS 15:23 → SBH 15:23
PROVIDERS: Internal Medicine; Nurse Practitioner; Physician Assistant; ADMIT Psychiatry & Neurology Psychiatry
DX: F01.50 Vascular dementia, unspecified severity, without behavioral disturbance, psychotic disturbance, mood disturbance, and anxiety (principal); I10 Essential (primary) hypertension; Z85.828 Personal history of other malignant neoplasm of skin; E78.5 Hyperlipidemia, unspecified; E53.8 Deficiency of other specified B group vitamins
CPT/HCPCS: 10880